=== PATIENT | female | born 1985 ===

== ENCOUNTER 2024-08-11 09:12 | Outpatient (AMB) | payer MEDICAID, SELFPAY ==
--- NOTE | 2024-08-11 09:13 | A.OFFVIS_ITS ---
Vital Signs 08/11/24 09:18 Height 5 ft 6 in Weight 213 lb BMI 34.4 BP 124/56 L Blood Pressure Location Lt brachial Position Sitting Pulse 91 Pulse Source Pulse Oximeter Pulse Oximetry (%) 97 Oxygen Delivery Method Room Air Intake Visit Reasons: Lumbar disc disease Intake Note: Pain today 08/01 Study Abroad Coordinator Required: Yes Study Abroad Coordinator Language: Turner Machine Services: Study Abroad Coordinator Present Study Abroad Coordinator Name: Beverly #[id number] Allergies oxycodone [From Percocet] Allergy (Unknown, Verified 08/11/24 09:18) Hives Medication List - Last Reconciled 08/11/24 by BENITEZ Villalobos lidocaine 5% 1 patch topical DAILY 30 days meloxicam 15 mg PO DAILY omeprazole 20 mg PO BID HPI HPI Lumbar disc disease: Details: Patient is a 39 years old Portuguese speaking female with recent traumatic arthritis of right ankle, chronic low back pain, lumbar DDD, obesity, chronic pelvic in female, presents today for initial evaluation of low back pain. Patient reports back pain has been chronic and recently exacerbated after she twisted her right ankle while wearing high heels at [employer] and subsequently injuring her right foot at work. She presents with RLE cast with exposed toes and is wearing Aircast boot. Patient reports she has Orthopedic follow up today with removal of cast and potential surgery discussion. Back pain is axial and discogenic without radiation into her lower extremities. She also has mild tenderness in the projection of bilateral sacroiliac joint areas, worse on the left. Denies previous spine surgery or injections. Pain affects her daily activities and functioning, mobility, sleep and social interactions. To this point she has not tried any dedicated conservative treatment in the forms of physical therapy, chiropractic, acupuncture or injections. She is interested to pursue PT and obtain initial lumbar spine imaging. Denies any fever or chills, abdominal or groin pain, weakness, bladder or bowel dysfunction or saddle anesthesia. Location: Lower back pain Duration: Chronic pain > 2 years Characteristics of symptom or complaint: Aching, stabbing, shooting, burning, throbbing Aggravating or associated factors: Prolonged sitting, bending, flexing forward, movements, ADLs Relieving factors: Tylenol, Ibuprofen, starting meloxicam, heat, rest Treatment: None PFSH Medical History (Updated 08/11/24 @ 09:27 by BENITEZ Villalobos) Chronic low back pain Traumatic arthritis of right ankle Chronic pelvic pain in female Lumbar degenerative disc disease Social History Alcohol intake: current Alcohol intake frequency: holidays/special occasions only Patient Tobacco Use Status: Current everyday Tobacco user Tobacco use type: Cigarette Cigarette Packs Per Day: 4 Review of Systems Const All systems reviewed & are unremarkable except as noted in HPI and below Physical Exam General: Appears afebrile. Alert and oriented. Mood and affect appropriate. Follows and participates in conversation appropriately. Respiratory effort is unlabored. No cough. Able to transition from sit to stand unassisted. Ambulates with left normal heel strike and toe off. Wearing Aircast boot on the right. General: Yes no CVA tenderness Back/Spine/Pelvis Other: Limited lumbar ROM due to pain. Significant pain with bending or flexing for garcia, mild pain with lumbar extension. Antalgic gait with limping. Demonstrates 5/5 left and 4/5 right strength of quadriceps bilaterally as well as flexion/dorsiflexion of bilateral feet against resistance. 2+ pedal pulses bilaterally. Straight leg rise with dorsiflexion negative bilaterally. +2 patellar and +1 on the left achilles reflexes, not checked on the right, RLE in cast. Facet loading test positive bilaterally. Karena sign, Brain?s and Stinchfield tests are positive bilaterally, left>right. No groin pain with I/E hip rotations. Valsalva maneuver negative. Back: no CVA tenderness Cervical Spine: cervical ROM normal, cervical muscular tenderness and No Cervical spine tenderness Thoracic/Lumbar Spine: thoracic and lumbar spine normal to inspection, No Thoracic/lumbar spine scar(s), Lasegue's sign negative, straight leg raise negative bilaterally, pain with thoraco-lumbar ROM, paraspinal muscle tenderness, thoraco-lumbar ROM limited, No thoracic spinal tenderness and lumbar spinal tenderness (L4-S1) Pelvis: no buttock tenderness Sacroiliac joints: bilaterally tender to palpation (mild) Sacrum: tenderness midline Results Reviewed Results Reviewed: No imaging reports are available for review. Patient denies prior spine imaging. Assessment & Plan Assessment & Plan (1) Lumbar degenerative disc disease: Code(s): M51.36 - Other intervertebral disc degeneration, lumbar region Category: Medical (2) Chronic low back pain: Code(s): M54.50 - Low back pain, unspecified; G89.29 - Other chronic pain Category: Medical (3) Discogenic low back pain: Code(s): M51.36 - Other intervertebral disc degeneration, lumbar region Category: Medical (4) Lumbosacral spondylosis: Code(s): M47.817 - Spondylosis without myelopathy or radiculopathy, lumbosacral region Category: Medical Plan Lumbar spine and SIJ imaging to assess degree of degenerative changes, any subluxation, listhesis, compression fractures or pars defects. Back pain is axial and easily reproduced and exacerbated with lumbar flexion indicating a discogenic source. Recommend formal physical therapy as initial steps to reduce pain and optimize mobility, improve strength and neuromuscular coordination. Script provided for [facility]. Will proceed with lumbar spine MRI if no improvement with PT and home exercise program. Continue Tylenol, heat therapy, activity modifications, NSAIDs, daily physical activity, weight optimization, adequate hydration and good posture. All questions and concerns have been answered and patient agreed with the plan. Follow up for xray results and sooner as needed. Orders: Orders XR lumbar spine 6V w bending Today M47.817 - Spondylosis without myelopathy or radiculopathy, lumbosacral region, M51.36 - Other intervertebral disc degeneration, lumbar region PT Evaluation and Treatment Today G89.29 - Other chronic pain, M47.817 - Spondylosis without myelopathy or radiculopathy, lumbosacral region, M51.36 - Other intervertebral disc degeneration, lumbar region, M54.50 - Low back pain, unspecified XR sacroiliac joint min 3V Today M47.817 - Spondylosis without myelopathy or radiculopathy, lumbosacral region Medications: New lidocaine 5% 1 patch topical DAILY 30 days 30 ea 0RF pain G89.29 - Other chronic pain, M47.817 - Spondylosis without myelopathy or radiculopathy, lumbosacral region, M51.36 - Other intervertebral disc degeneration, lumbar region, M54.50 - Low back pain, unspecified Coding Level of Care Code New Pt Level 4 (71341) Complex EM visit Add On G2211 Diagnoses Lumbar degenerative disc disease M51.36 Chronic low back pain M54.50; G89.29 Discogenic low back pain M51.36 Lumbosacral spondylosis M47.817
[2024-08-11 09:18] VITALS: BP 124/56; PULSE 91; O2SAT 97; BMI 34.4
== END 2024-08-11 09:34 | disposition home or self-care (01) ==
PROVIDERS: PCP Physician Assistant; Visit Provider Nurse Practitioner Family
DX: M51.36 Other intervertebral disc degeneration, lumbar region (principal); M54.50 Low back pain, unspecified; G89.29 Other chronic pain; M47.817 Spondylosis without myelopathy or radiculopathy, lumbosacral region
CPT/HCPCS: 99204

== ENCOUNTER → 2024-08-11 09:12 | Outpatient (BNVA) | payer MEDICAID, SELFPAY | PROVIDERS: PCP Physician Assistant; Visit Provider Nurse Practitioner Family | DX: M51.36 Other intervertebral disc degeneration, lumbar region (principal); M54.50 Low back pain, unspecified; M47.817 Spondylosis without myelopathy or radiculopathy, lumbosacral region; G89.29 Other chronic pain | CPT/HCPCS: 99212 ==

== ENCOUNTER 2024-08-15 09:37 | Outpatient (REF) | payer MEDICAID, SELFPAY ==
--- NOTE | ~2024-08-15 | XR_ITS ---
EXAMINATION: XR LUMBOSACRAL SPINE CLINICAL INFORMATION: Low back pain. COMPARISON: None available. TECHNIQUE: 6 views of the lumbar spine, inclusive of flexion and extension views, were obtained. FINDINGS: Submitted for interpretation on September 26, 2024. S-shaped curvature of the lower thoracic upper lumbar spine. No acute cortical disruption or gross malalignment. No lytic or blastic lesions. No gross malalignment during flexion and or extension. XR/XR lumbar spine 6V w bending IMPRESSION: No acute fracture or listhesis. No instability. Electronically signed by: Celestine Clifford MD 09/26/2024 03:35 PM EST
--- NOTE | ~2024-08-15 | XR_ITS ---
EXAMINATION: XR SACROILIAC JOINTS CLINICAL INFORMATION: Pain. COMPARISON: None available. TECHNIQUE: 3 views of the sacroiliac joints FINDINGS: No acute cortical disruption. No lytic or blastic lesions. No gross sclerosis. XR/XR sacroiliac joint min 3V IMPRESSION: Normal sacroiliac joints. Electronically signed by: Celestine Clifford MD 09/26/2024 03:42 PM EST
== END 2024-08-15 09:38 | disposition home or self-care (01) ==
LOC: HO.XRAY 09:37
PROVIDERS: PCP Physician Assistant; Visit Provider Nurse Practitioner Family
DX: M51.36 Other intervertebral disc degeneration, lumbar region (principal); M47.817 Spondylosis without myelopathy or radiculopathy, lumbosacral region
CPT/HCPCS: 72114; 72202

== ENCOUNTER → 2024-08-15 09:44 | Outpatient (BNV) | payer MEDICAID, SELFPAY | PROVIDERS: PCP Physician Assistant; Visit Provider Radiology Diagnostic Radiology | DX: M46.1 Sacroiliitis, not elsewhere classified (principal) | CPT/HCPCS: 72114; 72202 ==

== ENCOUNTER 2024-10-02 13:00 | Outpatient (RCR) | payer MEDICAID, SELFPAY ==
--- NOTE | 2024-09-14 17:19 | MHC.PT.EP ---
[facility] [place] Check Office [place] Office [place] Office [address] Andres Moore [address] [phone] F: [phone] F: [phone] F: [phone] F: [phone] Physical Therapy Plan of Care Date of Evaluation: 09/11/24 Date of Surgery: Diagnosis: spondylosis of lumbar. 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 Pt is deemed an appropriate candidate to receive skilled PT services to address their physical impairments in order to improve their functional ability. Frequency and Duration: The patient will be seen 2 x/ wk x 4 wks. Short Term Goals: Initiate home program. Improve baseline pain to < 6/10; initial: 8/10. Carton Waxing Machine Operator Goals: I with home program. Improve Davon by at least 9 points. Pt will be able to tolerate sitting > 1 hour. initial 30 min. Pt will be able to tolerate standing > 30 min, initial < 10 min. Treatment Plan: Modalities to reduce pain, spasms and effusion. Manual therapy to restore motion and function. Therapeutic exercise to improve strength and flexibility. Neuromuscular re-education for posture and balance. Therapeutic activities to return to functional activities of daily living. Electronically signed by: Carlos Pleitez PT. Please sign and return to therapist. Thank you for your referral.
--- NOTE | 2025-01-01 07:16 | MHC.PT.DC ---
[facility] [place] Office [place] Office [place] Office [address] Andres Moore [address] [phone] F: [phone] F: [phone] F: [phone] F: [phone] Physical Therapy Discharge Report Diagnosis: spondylosis of lumbar. Date of Surgery: Date of Evaluation: 09/11/24 Date of Discharge: 01/01/25 Treatments to Date: 6 Cancellations to Date: No Shows to Date: Discharge Status: Independent with HEP Patient Elected to Stop Recommend MD Follow-up Discharge Summary: Pennie is I with a gentle back basics program she did persist with LBP and was encouraged to f/u with her MD following her imaging studies. Electronically signed by: Carlos Pleitez PT. Please sign and return to therapist. Thank you for your referral.
== END 2025-01-01 07:16 | disposition home or self-care (01) ==
LOC: HO.PT 13:00
PROVIDERS: PCP Physician Assistant; Visit Provider Nurse Practitioner Family
DX: M47.817 Spondylosis without myelopathy or radiculopathy, lumbosacral region (principal); M54.50 Low back pain, unspecified; M51.369 Other intervertebral disc degeneration, lumbar region without mention of lumbar back pain or lower extremity pain
CPT/HCPCS: 97014; 97110; 97140; 97161

== ENCOUNTER 2025-02-06 10:38 | Outpatient (AMB) | payer MEDICAID, SELFPAY ==
--- NOTE | 2025-02-06 10:47 | MHC.OFFVIS ---
Vital Signs 02/06/25 10:51 Height 5 ft 6 in Weight 207 lb BMI 33.4 BP 127/60 Blood Pressure Location Lt brachial Position Sitting Pulse 65 Pulse Source Pulse Oximeter Pulse Oximetry (%) 98 Oxygen Delivery Method Room Air Intake Visit Reasons: Lumbar Disc Disease Intake Note: Pain today 05/31 Property Controller Required: Yes Property Controller Language: Parachutist/Combatant Diver Qualified Services: Property Controller Present Property Controller Name: Divya Information Interpreted: non-clinical & clinical Accompanied by: Spouse Allergies oxycodone [From Percocet] Allergy (Unknown, Verified 02/06/25 10:52) Hives HPI Comments Details: The patient is a 40-year-old female presenting with persistent back pain radiating into the right leg. Back pain has been progressively worsening for past 2 years. Reports stabbing pain is exacerbated by bending forward and backwards, significantly impacting her mobility and daily activities. There is associated tingling along the right leg down and below the knee with associated numbness and burning. The patient completed 6 sessions of physical therapy without relief of symptoms, and currently, she is in therapy for her ankle with potential discussion of right ankle surgery next month. Additionally, she exhibits limited mobility of the right ankle. Current pain management involves the use of lidocaine patches which provide mild symptom relief. She has ceased using meloxicam due to adverse effects, opting to use acetaminophen as needed. We will proceed with lumbar spine MRI as next steps. Patient denies pain on the left leg, abdominal or groin pain, weakness, bladder or bowel dysfunction or saddle anesthesia. - Onset: Chronic back pain for over 2 years. Right ankle pain. - Quality: Stabbing, aching, tingling, shooting, burning, throbbing, tiring, heavy - Location: Midline back with right leg radiation. Right ankle pain. - Radiation: From back to sides of the leg on the right - Exacerbating Factors: Flexion and extension of the back; standing and bending, walking - Relieving Factors: Lidocaine patches and heat therapy provide mild relief, Tylenol, tried NSAIDs -minimal relief - Impact: Limits range of motion; Tingling in the right leg; Limited right ankle mobility - Affect: Concerned about medication interactions; fear regarding medication usage - Analgesia: Current - Lidocaine patches used with mild relief, Acetaminophen as needed; Discontinued - Meloxicam - Adverse Effects: Not using meloxicam due to adverse effects - Activities of Daily Living: Limited by pain and restricted right ankle mobility - Aberrant Drug Related Behaviors: None reported; patient expresses cautious use of medications PRIOR: Patient is a 39 years old Salvadorean speaking female with recent traumatic arthritis of right ankle, chronic low back pain, lumbar DDD, obesity, chronic pelvic in female, presents today for initial evaluation of low back pain. Patient reports back pain has been chronic and recently exacerbated after she twisted her right ankle while wearing high heels at [employer] and subsequently injuring her right foot at work. She presents with RLE cast with exposed toes and is wearing Aircast boot. Patient reports she has Orthopedic follow up today with removal of cast and potential surgery discussion. Back pain is axial and discogenic without radiation into her lower extremities. She also has mild tenderness in the projection of bilateral sacroiliac joint areas, worse on the left. Denies previous spine surgery or injections. Pain affects her daily activities and functioning, mobility, sleep and social interactions. To this point she has not tried any dedicated conservative treatment in the forms of physical therapy, chiropractic, acupuncture or injections. She is interested to pursue PT and obtain initial lumbar spine imaging. Denies any fever or chills, abdominal or groin pain, weakness, bladder or bowel dysfunction or saddle anesthesia. Location: Lower back pain Duration: Chronic pain > 2 years Characteristics of symptom or complaint: Aching, stabbing, shooting, burning, throbbing Aggravating or associated factors: Prolonged sitting, bending, flexing forward, movements, ADLs Relieving factors: Tylenol, Ibuprofen, starting meloxicam, heat, rest Treatment: None [facility] Medical History (Updated 02/06/25 @ 11:22 by BENITEZ iVllalobos) Chronic low back pain Traumatic arthritis of right ankle Chronic pelvic pain in female Lumbar degenerative disc disease Social History (Updated 08/11/24 @ 09:20 by Stacia Busby) Alcohol intake: current Alcohol intake frequency: holidays/special occasions only Patient Tobacco Use Status: Current everyday Tobacco user Tobacco use type: Cigarette Cigarette Packs Per Day: 4 Review of Systems Const Details: - Musculoskeletal: Reports right leg tingling and limited right ankle movement; denies left leg pain - Neurological: Reports tingling sensation, denies bladder or bowel dysfunction or saddle anesthesia All systems reviewed & are unremarkable except as noted in HPI and below Physical Exam Vital Signs: Last Vital Signs Pulse 65 02/06/25 10:51 BP 127/60 02/06/25 10:51 Pulse Ox 98 02/06/25 10:51 Oxygen Delivery Method Room Air 02/06/25 10:51 BMI result Body Mass Index 33.4 General: Appears afebrile. Alert and oriented. Mood and affect appropriate. Follows and participates in conversation appropriately. Respiratory effort is unlabored. No cough. Able to transition from sit to stand unassisted. Ambulates with left normal heel strike and toe off. Wearing Aircast boot on the right. General: Yes no CVA tenderness Back/Spine/Pelvis Other: Limited lumbar ROM due to pain. Significant pain with bending or flexing forward, mild pain with lumbar extension. Antalgic gait with limping. Demonstrates 5/5 left and 4/5 right strength of quadriceps bilaterally as well as flexion/dorsiflexion of bilateral feet against resistance. 2+ pedal pulses bilaterally. Straight leg rise with dorsiflexion negative bilaterally. +2 patellar and +1 on the left achilles reflexes, not checked on the right, RLE in cast. Facet loading test positive bilaterally. Karena sign, Brain?s and Stinchfield tests are positive bilaterally, left>right. No groin pain with I/E hip rotations. Valsalva maneuver negative. Back: no CVA tenderness Cervical Spine: cervical ROM normal, cervical muscular tenderness and No Cervical spine tenderness Thoracic/Lumbar Spine: thoracic and lumbar spine normal to inspection, No Thoracic/lumbar spine scar(s), Lasegue's sign negative, straight leg raise negative bilaterally, pain with thoraco-lumbar ROM, paraspinal muscle tenderness, thoraco-lumbar ROM limited, No thoracic spinal tenderness and lumbar spinal tenderness (L4-S1) Pelvis: no buttock tenderness Sacroiliac joints: bilaterally tender to palpation (mild) Sacrum: tenderness midline Results Reviewed Results Reviewed: XR LUMBOSACRAL SPINE 08/15/24 CLINICAL INFORMATION: Low back pain. FINDINGS: Submitted for interpretation on September 26, 2024. S-shaped curvature of the lower thoracic upper lumbar spine. No acute cortical disruption or gross malalignment. No lytic or blastic lesions. No gross malalignment during flexion and or extension. IMPRESSION: No acute fracture or listhesis. No instability. XR SACROILIAC JOINTS 08/15/24 CLINICAL INFORMATION: Pain. FINDINGS: No acute cortical disruption. No lytic or blastic lesions. No gross sclerosis. IMPRESSION: Normal sacroiliac joints. Assessment & Plan Assessment & Plan (1) Lumbar degenerative disc disease: Code(s): M51.36 - Other intervertebral disc degeneration, lumbar region Category: Medical (2) Chronic low back pain: Code(s): M54.50 - Low back pain, unspecified; G89.29 - Other chronic pain Category: Medical (3) Discogenic low back pain: Code(s): M51.36 - Other intervertebral disc degeneration, lumbar region Category: Medical (4) Lumbosacral spondylosis: Code(s): M47.817 - Spondylosis without myelopathy or radiculopathy, lumbosacral region Category: Medical Plan Further evaluation of chronic back pain with right leg symptoms is necessary due to the ineffectiveness of previous physical therapy, NSAIDs, Tylenol, activity modifications, lidocaine patches and heat therapy. An MRI is being pursued to explore potential spinal pathologies, assess for neural integrity and compression. Follow up with Podiatry provider for persistent right ankle pain as planned. Patient reports potential right ankle surgery discussion in February. Patient will return to the clinic to discuss results of the MRI findings when it is done and consider interventional therapy as indicated. Continue Tylenol, heat therapy, activity modifications, NSAIDs, daily physical activity, weight optimization, adequate hydration and good posture. All questions and concerns have been answered and patient agreed with the plan. Follow up for xray results and sooner as needed. Patient was informed and verbally consented to the use of an ambient scribe for clinic note documentation during this visit. Orders: Orders MR lumbar spine wo con Today M47.817 - Spondylosis without myelopathy or radiculopathy, lumbosacral region, M51.36 - Other intervertebral disc degeneration, lumbar region, M54.16 - Radiculopathy, lumbar region Medications: Refilled lidocaine 5% 1 patch topical DAILY 30 days 30 ea 3RF pain G89.29 - Other chronic pain, M47.817 - Spondylosis without myelopathy or radiculopathy, lumbosacral region, M51.36 - Other intervertebral disc degeneration, lumbar region, M54.50 - Low back pain, unspecified Coding Level of Care Code Est Pt Level 4 (96074) Complex EM visit Add On G2211 Diagnoses Lumbar degenerative disc disease M51.36 Chronic low back pain M54.50; G89.29 Discogenic low back pain M51.36 Lumbosacral spondylosis M47.817
[2025-02-06 10:51] VITALS: BP 127/60; PULSE 65; O2SAT 98; BMI 33.4
--- OUTSIDE RECORDS SUMMARY | 2025-02-06 12:36 | XMS_ITS | Clinical Summary ---
Author Organization [facility] Address [address] [place] [address] Care Team Providers Care Can Line Operator Name Role Phone Francine Lambert PA-C Primary Care Provider + [phone] Source Comments PLEASE NOTE, if this patient is a minor, it may be UNLAWFUL to discuss sensitive information that is contained in these records (such as FAMILY PLANNING, MENTAL HEALTH or SUBSTANCE ABUSE) with the minor patient's parent or other person without the patient's specific authorization.[facility] Allergies Active Allergy Reactions Criticality Noted Date Comments Oxycodone-Acetaminophen Itching 05/01/2016 Medications diclofenac sodium (VOLTAREN) 1 % gelIndications: Lumbar disc disease Apply 4 gm QID 100 g 5 10/06/20 22 Active terconazole (TERAZOL 3) 0.8 % vaginal creamIndication s:Subacute vaginitis Place 1 Applicator vaginally nightly at bedtime 20 g 2 10/06/20 22 Active mupirocin (BACTROBAN) 2 % ointment Apply topically nightly at bedtime Csection scar 22 g 10/06/20 22 Active cyclobenzaprine (FLEXERIL) 10 mg tablet Take 1 Tablet by mouth nightly at bedtime 30 Tablet 1 10/06/20 22 Active amoxicillin-pot clavulanate (AUGMENTIN) 875-125 mg per tabletIndicatio ns:Right acute otitis media Take 1 Tablet by mouth 2 (two) times daily 10 Tablet 02/04/20 24 Active meloxicam (MOBIC) 15 mg tabletIndicatio ns:Traumatic arthritis of right ankle,Lumbar disc disease Take 1 Tablet by mouth once daily 90 Tablet 2 03/31/20 24 Active omeprazole (PRILOSEC) [address] capsuleIndicati ons:Dyspepsia Take 1 Capsule by mouth 2 (two) times daily 180 Capsule 2 04/26/20 24 Active nystatin (MYCOSTATIN) 100,000 unit/gram powderIndicatio ns:Intertrigo Apply topically 4 (four) times daily 30 g 6 04/26/20 24 Active propranoloL (INDERAL) 10 mg tabletIndicatio ns:Hyperthyroid ism Take 1 Tablet by mouth 2 (two) times daily 180 Tablet 1 01/05/20 25 Active zinc oxide (TRIPLE PASTE) ointmentIndicat ions:Intertrigo Apply topically as needed for dry skin 60 g 2 01/05/20 25 Active nicotine (NICODERM, STEP 1) 21 mg/24 hr patchIndication s:Tobacco use Place 1 Patch onto the skin once daily (every 24 hours) 28 Patch 1 01/05/20 25 Active loratadine (CLARITIN) 10 mg tabletIndicatio ns:Atopic dermatitis, unspecified type TAKE 1 TABLET BY MOUTH NIGHTLY AT BEDTIME 90 Tablet 4 01/30/20 25 Active loratadine (CLARITIN) 10 mg tabletIndicatio ns:Atopic dermatitis, unspecified type Take 1 Tablet by mouth nightly at bedtime 90 Tablet 4 01/07/20 24 025 Discontinued Hospital, Clinic, or Other Facility Administered Medication Ordered Dose Route Frequency Start Date End Date Status Kary 20.1 mcg/24 hrs (6 yrs) 52 mg IUD (levonorgestreL)Indicatio ns:Encounter for insertion of intrauterine contraceptive device 1 Each utrn EVERY 4 YEARS 06/24/2021 A ctive Active Problems Problem Noted Date Diagnosed Date Hyperthyroidism 202401/31/2025 Traumatic arthritis of right ankle 03/31/2024 Chronic pelvic pain in female 03/31/2024 Lumbar disc disease 09/04/2020 Non morbid obesity 08/29/2020 Dyspepsia 03/23/2018 Functional constipation 01/26/2018 H. pylori infection 07/201608/04/2016 Tobacco use 09/23/2015 Carpal tunnel syndrome of right wrist 04/05/2015 Hirsutism 05/17/2014 Encounters Date Type Department Care Team Description 01/31/2025 2:00 PM EDT Office Visit [address] [address] Francine Lambert PA-C Hyperthyroidism 2024 (Primary Dx); Tobacco use; Traumatic arthritis of right ankle 01/05/2025 1:20 PM EST Office Visit [address] [address] Francine Lambert PA-C Hyperthyroidism (Primary Dx); Intertrigo; Tobacco use from Last 3 Months Immunizations Name Administration Dates Next Due INFLUENZA, SEASONAL, INJECTA BLE, PRESERVATIVE FREE 12/07/2012 MMR (MMR II/Priorix) 06/28/2019 PNEUMOCOCCAL CONJUGATE PCV 2 0 (Prevnar) 10/06/2022 PPD 05/03/2018, 7,04/29/2016,2014 TDAP 08/10/2017 Social History Tobacco Use Types Packs/Day Years Used Date Smoking Tobacco: Every Day Cigarettes 0.3 22.1 Started: 2003 Passive Smoke Exposure: Never Smokeless Tobacco: Never Tobacco Cessation:Ready to Q uit: No; Counseling Given: Yes Alcohol Use Standard Drinks/Week Comments No 0 (1 standard drink = 0.6 oz pur e alcohol) Social Connections Answer Date Recorded Connectedness 1 01/31/2025 Financial Resource Strain Answer Date R ecorded Financial Resource Strain 1 2024 Stress Answer Date Recorded Stress 1 01/31/2025 Physical Activity Answer Date Recorded Physical Activity 0 07/15/2019 Food Insecurity Answer Date Recorded Food 1 01/31/2025 Transportation Needs Answer Date Record ed Transportation 1 01/31/2025 Housing Stability Answer Date Recorded Housing 1 01/31/2025 Safety and Environment Answer Date Young rded Safety 1 03/31/2024 Utilities Answer Date Recorded Utilities 1 01/31/2025 Employment Answer Date Recorded Employment 0 07/15/2019 Comments No Sex and Gender Information Value Date Recorded Sex Assigned at Female 09/20/2017 11:42 AM PDT Legal Sex Female 11:36 AM PDT Gender Identity Female 09/20/2017 11:42 AM PDT Sexual Orientation Straight 09/20/2017 11 :42 AM PDT Last Filed Vital Signs Vital Sign Reading Time Taken Comments Blood Pressure 124/60 01/31/2025 1:41 PM EDT Pulse 82 01/31/2025 1:41 PM EDT Temperature 36.9 ??C (98.4 ??F) 01/31/2025 1:41 PM ED T Respiratory Rate 16 01/31/2025 1:41 PM EDT Oxygen Saturation 98% 01/31/2025 1:41 PM EDT Inhaled Oxygen Concentration - - Weight 92.5 kg (204 lb) 01/31/2025 1:41 PM EDT Height 157.5 cm (5' 2 ) 01/31/2025 1:41 PM EDT Body Mass Index 37.31 01/31/2025 1:41 PM EDT Plan of Treatment Health Maintenance Due Date Last Done Comments HPV Screening 1983 Pap Smear 09/04/2023 09/04/2020, 08/22, 09/04/2020, Additional history exists Annual Preventive Care Visit 03/31/202508/2024, 10/06/2022, 09/04/2020, Additional history exists Relationship Safety Screening/Counseling 03/31/2025 03/31/2024, 01/07/2024, 12/09/2022, Additional history exists Cervical Cancer Screening 09/04/2025 Pap + HPV 09/04/2025 09/04/2020, 09/04/2020 Hypertension Screening (#1) 01/31/2026 Tobacco Cessation Counseling (#1) 01/31/2026 015, 10/03/2015 Breast Cancer Screening (Mammogram) 04/04/2026 04/04/2024 Diabetes Screening 01/28/2027 01/29/2024, 0 01/29/2024, 10/06/2022, Additional history exists Lipid Screening 01/28/2027 01/29/2024, 09/22, 08/29/2020, Additional history exists LARC-Liletta IUD 06/24/2027 06/24/2021 Imm-Influenza Discontinued 12/07/2012 HIV Screening Completed 06/19/2014 Hepatitis C Screening Completed 06/19/2014 Imm-DTaP/Tdap/Td Discontinued 08/10/2017 Imm-Pneumococcal Discontinued 10/06/2022 Alcohol and Drug Screen Completed 02/01/20 25, 03/31/2024, 01/07/2024, Additional history exists Depression Annual Screen Completed 025, 06/14/2015, 08/06/2014 (Declined) Cervical Ablation/Cold-Knife Conization Discontinued Cervical Cryotherapy Discontinued Colposcopy Discontinued Endometrial Biopsy Discontinued Excision/Leep Discontinued HPV Genotyping Discontinued [id number] Discontinued Imm-Hepatitis B Discontinued Vaginal Pap Discontinued Vulvoscopy Discontinued Procedures Procedure Name Priority Date/Time Associated Diagnosis Comments CARD SCANNED DOCUMENT 01/19/2025 3:00 AM EST REFERRAL SCANNED DOCUMENT 01/09/2025 3:00 AM EST REFERRAL SCANNED DOCUMENT 12/28/2024 3:00 AM EST REFERRAL TO ORTHOPEDICS Routine 12/21/2024 3:00 AM EST Traumatic arthritis of right ankle MAMMOGRAM BI-RADS, ABSTRACTED Routine 04/04/2024 1:55 PM EDT HEMOGLOBIN GLYCOSYLATED A1C Routine 01/29/2024 8:37 AM EST New onset headache Dizziness Atopic dermatitis, unspecified type LIPID PANEL Routine 01/29/2024 8:37 AM EST New onset headache Dizziness Atopic dermatitis, unspecified type PAP, LIQUID BASED Routine 09/04/2020 10: 30 AM EDT Encounter for gynecological examination without abnormal finding Cervical cancer screening PAP SMEAR W/HPV, ABSTRACTED Routine 09/04/2020 ANTIBODY HIV-1&HIV-2 SINGLE RESULT Routine 06/19/2014 12:50 PM EDT Routine general medical examination at a health care facility Venous insufficiency Dyspepsia Intertrigo Dyshidrotic eczema External hemorrhoid Constipation - functional Pulmonary nodule HEPATITIS A,B,C PANEL Routine 06/19/2014 12:50 PM EDT Routine general medical examination at a health care facility Venous insufficiency Dyspepsia Intertrigo Dyshidrotic eczema External hemorrhoid Constipation - functional Pulmonary nodule from Last 3 Months or Most Recently Relevant to Health Maintenance Results * CARD SCANNED DOCUMENT (01/19/2025 3:00 AM EST) 01/19/2025 3:00 AM EST us Francine Dotsonkin PA-C SCAN ECGS Final Result * REFERRAL SCANNED DOCUMENT (01/09/2025 3:00 AM EST) Only the most recent of2 resultswithin the time period is included. 01/09/2025 3:00 AM EST us Francine Lukin PA-C SCAN REFERRAL Final Result * REFERRAL TO ORTHOPEDICS (12/21/2024 3:00 AM EST) 12/21/2024 3:00 AM EST us Francine Lukin PA-C REFERRAL Final Result * MAMMOGRAM BI-RADS, ABSTRACTED (04/04/2024 1:55 PM EDT) BI-RADS ASSESSMENT 1 - Negative: means that there is no significant or noticeable abnormality to report. BI-RADS FOLLOW-UP 1 - Routine Screening Anatomical Region Laterality Modality Other Impressions 04/04/2024 1:55 PM EDT ? Result type: MM Digital Mammo Screening Result date: April 04, 2024 14:56 EDT Result status: Auth (Verified) Result title: MM Digital Mammo Screening Performed by: Tanja Wilson MD on April 04, 2024 16:38 EDT Verified by: Tanja Wilson MD on April 04, 2024 16:38 EDT Encounter info: [id number], [facility] [place], One Time OP, 04/04/2024 - 04/04/2024 * Final Report * Reason For Exam Z12.31 SCREENING;Pain RESULT: MM Digital Mammo Screening PROCEDURE: MM Digital Mammo Screening INDICATION: Screening for breast cancer. No known palpable abnormalities. COMPARISON: None. Baseline. TECHNIQUE: Full-field digital CC and MLO 3D tomosynthesis images of both breasts were acquired. Computer-aided detection (CAD) was utilized in the interpretation of this study. DENSITY: There are scattered areas of fibroglandular density. ?? FINDINGS: No suspicious masses, suspicious microcalcifications, or areas of architectural distortion are seen in either breast to suggest malignancy. IMPRESSION: No mammographic evidence of malignancy. RECOMMENDATION: Routine mammographic screening BI-RADS: 1 (Negative) Lay letter mailed to patient WSN: [id number] Ordering Physician: Alyssa Claros Signature Line Dictated By: ?Tanja Wilson MD Dictated Date/Time: ?04/04/24 4:38 pm Reviewed By: ?Tanja Wilson MD Signed By: ? Tanja Wilson MD Signed Date/Time: ? 04/04/24 4:38 pm Transcribed By: ? CSB Sheet Metal Installer Date/Time: ? 04/04/24 4:20 pm Birads: MM Digital Mammo Screening This document has an image Provider [facility] MAMMO Final Result * HEMOGLOBIN GLYCOSYLATED A1C (01/29/2024 8:37 AM EST) HEMOGLOBIN A1C 5.6 <5.7 % of total Hgb ITS Compliance Comment: For the purpose of screening for the presence of diabetes: <5.7% ? Consistent with the absence of diabetes 5.7-6.4% ?Consistent with increased risk for diabetes ?(prediabetes) > or =6.5% ??Consistent with diabetes This assay result is consistent with a decreased risk of diabetes. Currently, no consensus exists regarding use of hemoglobin A1c for diagnosis of diabetes in children. According to [place] Diabetes Association (ADA) guidelines, hemoglobin A1c <7.0% represents optimal control in non- diabetic patients. Different metrics may apply to specific patient populations. Standards of Medical Care in Diabetes(ADA). ?? Blood Blood / Unknown 01/29/2024 8 :37 AM EST 01/29/2024 8:40 AM EST Narrative [facility] - 01/31/2024 6:10 PM EDT FASTING:YES Francine Lambert PA-C LAB - BLOOD DRAW Edited Resu lt - Final [facility] [address] [address], [facility] [address] [address] * (ABNORMAL) LIPID PANEL (01/29/2024 8:37 AM EST) [facility] Signature CHOLESTEROL, TOTAL 187 <200 mg/dL [facility] HDL CHOLESTEROL 35(L) > OR = 50 mg/dL [facility] TRIGLYCERIDES 114 <150 mg/dL [facility] LDL-CHOLESTEROL 130(H) 99 mg/dL (calc) [facility] Comment: Reference range: <100 Desirable range <100 mg/dL for primary prevention; ?? <70 mg/dL for patients with CHD or diabetic patients with > or = 2 CHD risk factors. LDL-C is now calculated using the Bassam-Paz calculation, which is a validated novel method providing better accuracy than the Friedewald equation in the estimation of LDL-C. Bassam SS et al. RADHA. 2013;310(19): 8827-5211 (http://education.[employer]faq/FQT820) CHOL/HDLC RATIO 5.3(H) <5.0 (calc) [facility] NON-HDL CHOLESTEROL 152(H) <130 mg/dL (calc) [facility] Comment: For patients with diabetes plus 1 major ASCVD risk factor, treating to a non-HDL-C goal of <100 mg/dL (LDL-C of <70 mg/dL) is considered a therapeutic option. Blood Blood / Unknown 01/29/2024 8 :37 AM EST 01/29/2024 8:40 AM EST Narrative [facility] - 01/31/2024 6:10 PM EDT FASTING:YES Francine Lambert PA-C LAB - BLOOD DRAW Final Resul t Performing Organization Address [facility] Co de Phone Number [facility] [address] [address], [facility] [address] [place] [address] * PAP, LIQUID BASED (09/04/2020 10:30 AM EDT) PAP normal NORMAL - ABNORMAL [facility] Cervix Cervix uteri structure / Unknown 09/04/2020 10:30 AM EDT Impressions [facility] - 09/04/2020 10:30 AM EDT Negative for squamous intraepithelial lesion and malignancy High risk HPV : Negative Results of Aptima Combo 2 Assay: Chlamydia: Negative N. Gonorrhoeae: Negative Francine Lambert PA-C LAB - NO BLOOD DRAW Final Re sult Performing Organization Address [facility] Co de Phone Number [facility] [address] [place] [address], * PAP SMEAR W/HPV (09/04/2020) Provider [facility] LAB - NO BLOOD DRAW Final Result Performing Organization Address [facility] Co de Phone Number [facility] [address] [place] [address], * (ABNORMAL) HEPATITIS A,B,C PANEL (06/19/2014 12:50 PM EDT) HEPATITIS B SURFACE ANTIGEN NEGATIVE NEGATIVE [facility] C VIRUS ANTIBODY NEGATIVE NEGATIVE [facility]PAT[facility] A ANTIBODY TOTAL NEGATIVE NEGATIVE [facility] HEPATITIS B CORE ANTIBODY NEGATIVE NEGATIVE [facility] HEPATITIS B SURFACE ANTIBODY POSITIVE(A) NEGATIVE [facility] Blood specimen (specimen) Blood / Unknown 06/19/2014 12:50 PM EDT 06/19/2014 1:07 PM EDT Narrative [facility] - 06/19/2014 4:51 PM EDT [employer] [address] [place] [address] PT ID [id number] ORD# [id number] Francine Lambert PA-C LAB - BLOOD DRAW Edited Resu lt - Final Performing Organization Address City/[facility]/ZIP Co de Phone Number [facility] [address] [place] [address], [place] [phone] * HIV-1 & HIV-2 ANTIBODIES (06/19/2014 12:50 PM EDT) [facility] HIV 1 AND 2 ANTIBODY SCREEN NEGATIVE NEGATIVE [facility] Blood specimen (specimen) Blood / Unknown 06/19/2014 12:50 PM EDT 06/19/2014 1:07 PM EDT Narrative [facility] - 06/19/2014 4:50 PM EDT [facility] [employer] [address] [place] [address] [place] [id number] ORD# [id number] Francine Lambert PA-C LAB - BLOOD DRAW Final Resul t Performing Organization Address [facility]/ZIP Co de Phone Number [facility] [address] [place] [address], [place] [phone] from Last 3 Months or Most Recently Relevant to Health Maintenance Insurance [place] [facility] SAF[employer] NET DENT[employer] [address] [employer] Care Teams Can Line Operator Relationship Specialty Start Date End Date Francine Lambert PA-C [address] [place] [phone] PCP - General Internal Medicine 05/18/14
--- OUTSIDE RECORDS SUMMARY | 2025-02-06 12:36 | XMS_ITS | Clinical Summary ---
Author Organization [facility] Address [address] [place] [id number] Care Team Providers Care Heating And Air Conditioning Mechanic Name Role Phone Eros Whitten MD Primary Care Provider [phone] Social History Tobacco Use Types Packs/Day Years Used Date Smoking Tobacco: Never Assessed Comments Unknown Sex and Gender Information Value Date Recorded Sex Assigned at Not on file Legal Sex Female 10:18 AM EST Gender Identity Not on file Sexual Orientation Not on file Last Filed Vital Signs Vital Sign Reading Time Taken Comments Blood Pressure 118/63 04/25/2024 1:01 PM EDT Pulse 73 04/25/2024 1:01 PM EDT Temperature - - Respiratory Rate - - Oxygen Saturation - - Inhaled Oxygen Concentration - - Weight 94.9 kg (209 lb 3.2 oz) 04/25/2024 1:01 P M EDT Height 167.6 cm (5' 6 ) 04/25/2024 1:01 PM EDT Body Mass Index 33.77 04/25/2024 1:01 PM EDT Plan of Treatment Health Maintenance Due Date Last Done Comments Breast Cancer Screening 1983 COVID-19 Vaccine (#1) 1988 DTaP,Tdap,and Td Vaccines (1 - Tdap) 2002 Hepatitis B Vaccines (1 of 3 - 19+ 3-dose series) 2002 Pneumococcal Vaccine: Pediat rics (0 to 5 Years) and At-Risk Patients (6 to 64 Years) (1 of 2 - PCV) 2002 Cervical Cancer Screening: P ap Smear 2004 Depression Screening 10/20/2022 HIV Screening 10/20/2022 Hepatitis C Screening 10/20/2022 Social Influencers of Health Screening 10/20/2022 Influenza Vaccine (#1) 2024 HIB Vaccines Aged Out No longer eligi ble based on patient's age to complete this topic HPV Vaccines Aged Out No longer eligi ble based on patient's age to complete this topic Hepatitis A Vaccines Aged Out No long er eligible based on patient's age to complete this topic IPV Vaccines Aged Out No longer eligi ble based on patient's age to complete this topic MMR Vaccines Aged Out No longer eligi ble based on patient's age to complete this topic Meningococcal ACWY Vaccine Aged Out N o longer eligible based on patient's age to complete this topic Meningococcal B Vacine Aged Out No lo nger eligible based on patient's age to complete this topic RSV Immunization Patients Un cosme 20 months Aged Out No longer eligible b ased on patient's age to complete this topic Varicella Vaccines Aged Out No longer eligible based on patient's age to complete this topic Care Teams Heating And Air Conditioning Mechanic Relationship Specialty Start Date End Date Eros Whitten MD [address] [place] [phone] PCP - General Internal Medicine 08/15/20
--- OUTSIDE RECORDS SUMMARY | 2025-02-06 12:36 | XMS_ITS | Encounter Summary ---
Author Organization [facility] Address [address] [place] [address] Care Team Providers Care Tennis Player Name Role Phone Francine Lambert PA-C Primary Care Provider + [phone] Reason for Visit * Reason Comments Tobacco Abuse Encounter Details Date Type Department Care Team (Latest Contact Info) Description 01/31/2025 2:00 PM EDT Office Visit [facility] Main [address] [phone] Francine Lambert PA-C [address] [place] [phone] 2024 (Primary Dx); Tobacco use; Traumatic arthritis of right ankle Social History Tobacco Use Types Packs/Day Years [...] Orientation Straight 09/20/2017 11 :42 AM PDT documented as of this encounter Last Filed Vital Signs Vital Sign Reading [...] Mass Index 37.31 01/31/2025 1:41 PM EDT documented in this encounter Progress Notes * Francine Lambert PA-C - 01/31/2025 2:50 PM EDT S: Subjective Chief Complaint: Follow-up for thyroid and tobacco use History of Present Illness: Pennie Oliver is a 40 year old female who presents for thyroid disease Started methimazole and propranolol prescribed by jase and feels better Did not start nicotine patches Too many smokers around her Has surgery for right ankle with ortho coming up 01/31/2025 1:41 PM Little interest or pleasure in doing things Not at all Feeling down, depressed or hopeless [include irritable if under 18] Not at all Trouble falling or staying asleep, or sleeping too much Not at all Feeling tired or having little energy Not at all Poor appetite or overeating Not at all Feeling bad about yourself - or that you are a failure or have let yourself or your family down Notat all Trouble concentrating on things like school work, reading or watching TV? Not at all Moving or speaking so slowly that other people could have noticed? Or the opposite - being so fidgety or restless that you have been moving around a lot more than usual Not at all Thoughts you would be better off or of hurting yourself in some way Not at all If you checked off any problems, how difficult have these problems made it for you to do your work,take care of things at home, or get along with other people? Not difficult at all PHQ-9 Total Score (Auto Calculated) 0 Depression Severity: None-minimal O: Objective Vital Signs: Visit Vitals BP 124/60 (BP Site: Right Arm, BP Position: Sitting, BP Cuff Size: Large Adult) Pulse 82 Temp 98.4 ??F (36.9 ??C) (Oral) Ht 5' 2 (1.575 m) Wt 204 lb (92.5 kg) LMP 01/25/2025 (Exact Date) SpO2 98% BMI 37.31 kg/m?? Vitals: 01/31/25 1341 Height: 5' 2 (1.575 m) Vitals: 01/31/25 1341 Weight: 204 lb (92.5 kg) General: Well-nourished, well-developed male in no acute distress. Cardiovascular: Regular rate and rhythm, no murmurs, gallops, or rubs. No peripheral edema. Respiratory: Clear to auscultation bilaterally. Abdomen: Soft, non-tender, non-distended. Normal bowel sounds. Extremities: No cyanosis, clubbing, or edema. Neurological: Alert and oriented x3, cranial nerves II-XII intact. Integumentary: Skin warm and dry, no rashes or lesions. Foot Exam: Inspection: No deformities, ulcers, or calluses. Pulses: Dorsalis pedis and posterior tibial pulses 2+ bilaterally. Sensation: Intact to monofilament testing. Capillary refill: <2 seconds. A: Assessment ,E05.90 Hyperthyroidism 2024 (primary encounter diagnosis)--cont endo follow up and management Z72.0 Tobacco use Ready to quit: No Counseling given: Yes M12.571 Traumatic arthritis of right ankle--cont ortho follow up and management Lifestyle measures:BMI follow up plan: The patient was counseled regarding nutrition and physical activity. PLAN: Continue specialty follow up and management documented in this encounter Miscellaneous Notes * Patient Instructions - Francine Lambert PA-C - 01/31/2025 1:54 PM EDT If you are not able to keep your appointment please call 24-48 hours before your appointment to cancel or reschedule. documented in this encounter Plan of Treatment Not on file documented as of this encounter Procedures Procedure Name Priority Date/Time Associated Diagnosis Comments MAMMOGRAM BI-RADS, ABSTRACTED Routine 04/04/2024 1:55 PM EDT documented in this encounter Results * MAMMOGRAM BI-RADS, ABSTRACTED (04/04/2024 1:55 PM [...] April 04, 2024 16:38 EDT Encounter info: [id number], [facility], One Time OP, 04/04/2024 - 04/04/2024 * [...] (Negative) Lay letter mailed to patient WSN: [id number] Ordering Physician: Alyssa Claros Signature Line Dictated By: ?Tanja Wilson MD Dictated Date/Time: ?04/04/24 4:38 pm Reviewed By: ?Tanja Wilson MD Signed By: ? Tanja Wilson MD Signed Date/Time: ? 04/04/24 4:38 pm Transcribed By: ? CSB Director Pharmacology Date/Time: ? 04/04/24 4:20 pm Birads: MM Digital Mammo Screening This document has an image us Provider Louise GALELGOS MAMMO Final Result documented in this encounter Visit Diagnoses Diagnosis Hyperthyroidism 2024- Primary Thyrotoxicosis without mention of goiter or other cause, without mention of thyrotoxic crisis or storm Tobacco use Tobacco use disorder Traumatic arthritis of right ankle documented in this encounter Additional Health Concerns Assessment Noted Time PHQ-9 Depression Total Score: 0 02/01/20 25 1:41 PM PDT documented as of this encounter Care Teams Tennis Player Relationship Specialty Start Date End Date Francine Lambert PA-C [facility] [place] [phone] PCP - General Internal Medicine 05/18/14 documented as of this encounter
== END 2025-02-06 11:12 | disposition home or self-care (01) ==
LOC: HO.PMC 10:39
PROVIDERS: PCP Physician Assistant; Visit Provider Nurse Practitioner Family
DX: M51.369 Other intervertebral disc degeneration, lumbar region without mention of lumbar back pain or lower extremity pain (principal); M54.50 Low back pain, unspecified; G89.29 Other chronic pain; M47.817 Spondylosis without myelopathy or radiculopathy, lumbosacral region
CPT/HCPCS: 99214

== ENCOUNTER → 2025-02-06 10:38 | Outpatient (BNVA) | payer MEDICAID, SELFPAY | PROVIDERS: PCP Physician Assistant; Visit Provider Nurse Practitioner Family | DX: M51.360 Other intervertebral disc degeneration, lumbar region with discogenic back pain only (principal); G89.29 Other chronic pain | CPT/HCPCS: 99212 ==

== ENCOUNTER 2025-02-17 18:28 | Outpatient (REF) | payer MEDICAID, SELFPAY ==
--- NOTE | ~2025-02-17 | MR_ITS ---
CLINICAL HISTORY: M51.36 - Other intervertebral disc degeneration, lumbar region Lumbar MRI Without Contrast : Comparison: Plain films 08/15/2024 Findings: Alignment is good No Spondylolysis Bone marrow cellularity is normal. A 12 mm L1 vertebral body hemangioma is present. No fractures. Paravertebral soft tissues: Normal. A 10 mm right renal cortical cyst is present. The conus medullaris is located at T12-L1. Distal spinal cord morphology and signal is normal. T12-L1: No disc protrusion. No foraminal stenosis L1-L2: No disc protrusion. No foraminal stenosis L2-L3: No disc protrusion. No foraminal stenosis L3-L4: No disc protrusion. No foraminal stenosis L4-L5: No disc protrusion. No foraminal stenosis. L5-S1: There is focal left intraforaminal 5.2 mm disc protrusion with radial tear with moderate foraminal stenosis. Impression: Focal left intraforaminal disc protrusion with moderate foraminal stenosis at L5-S1 This document has been electronically signed by: Blayne Gonzales MD on 02/17/2025 19:16:07
== END 2025-02-17 18:29 | disposition home or self-care (01) ==
LOC: HO.MRI 18:28
PROVIDERS: Visit Provider Nurse Practitioner Family
DX: M47.817 Spondylosis without myelopathy or radiculopathy, lumbosacral region (principal); M54.16 Radiculopathy, lumbar region; M51.369 Other intervertebral disc degeneration, lumbar region without mention of lumbar back pain or lower extremity pain
CPT/HCPCS: 72148

== ENCOUNTER → 2025-02-17 18:28 | Outpatient (BNV) | payer MEDICAID, SELFPAY | PROVIDERS: Visit Provider Radiology Diagnostic Radiology | DX: M51.369 Other intervertebral disc degeneration, lumbar region without mention of lumbar back pain or lower extremity pain (principal) | CPT/HCPCS: 72148 ==

== ENCOUNTER 2025-02-22 12:43 | Outpatient (AMB) | payer MEDICAID, SELFPAY ==
[2025-02-22 12:50] VITALS: BP 120/72; PULSE 69; O2SAT 97; BMI 33.6
--- NOTE | 2025-02-22 12:50 | MHC.OFFVIS ---
Vital Signs 02/22/25 12:50 Height 5 ft 6 in Weight 208 lb BMI 33.6 BP 120/72 Blood Pressure Location Lt brachial Position Sitting Pulse 69 Pulse Source Pulse Oximeter Pulse Oximetry (%) 97 Oxygen Delivery Method Room Air Intake Visit Reasons: MRI results Allergies oxycodone [From Percocet] Allergy (Unknown, Verified 02/22/25 12:50) Hives Medication List - Last Reconciled 02/22/25 by BENITEZ Villalobos lidocaine 5% 1 patch topical DAILY 30 days methimazole 10 mg PO Q8H nicotine 1 patch topical DAILY omeprazole 20 mg PO BID propranolol 20 mg PO TID zinc oxide 20% topical HPI Comments Details: Patient presents today for follow up to discuss recent lumbar spine MRI results. Patient continues to endorse chronic back pain and right ankle pain. She reports a persistent back pain history lasting over two years, primarily affecting the right side and occasionally both legs, impacting her right hip and groin. Her symptoms are exacerbated by specific activities, notably contributing to her discomfort. Additionally, the patient is preparing for right ankle surgery this month. A recent MRI revealed a left L5-S1 disc herniation with moderate spinal stenosis, despite the patient experiencing negligible left leg symptoms. Furthermore, a cyst on her right kidney was detected, prompting recommendations for follow-up with a renal ultrasound. The patient reports partial back pain relief with lidocaine patches. - Onset: Chronic back pain over two years. - Quality: Radiating pain predominantly on the right side, sometimes affecting both legs. - Location: Right side, affecting right hip and groin; occasional bilateral leg pain. - Radiation: Pain radiates to the right leg, sometimes both but is described as minimal on the left. - Exacerbating Factors: Specific activities worsen the symptoms. - Relieving Factors: Partial relief with lidocaine patches, heat, Tylenol, NSAID. - Impact on Function: Slight interference with daily activities, specific impact not detailed. PRIOR: The patient is a 40-year-old female presenting with persistent back pain radiating into the right leg. Back pain has been progressively worsening for past 2 years. Reports stabbing pain is exacerbated by bending forward and backwards, significantly impacting her mobility and daily activities. There is associated tingling along the right leg down and below the knee with associated numbness and burning. The patient completed 6 sessions of physical therapy without relief of symptoms, and currently, she is in therapy for her ankle with potential discussion of right ankle surgery next month. Additionally, she exhibits limited mobility of the right ankle. Current pain management involves the use of lidocaine patches which provide mild symptom relief. She has ceased using meloxicam due to adverse effects, opting to use acetaminophen as needed. We will proceed with lumbar spine MRI as next steps. Patient denies pain on the left leg, abdominal or groin pain, weakness, bladder or bowel dysfunction or saddle anesthesia. - Onset: Chronic back pain for over 2 years. Right ankle pain. - Quality: Stabbing, aching, tingling, shooting, burning, throbbing, tiring, heavy - Location: Midline back with right leg radiation. Right ankle pain. - Radiation: From back to sides of the leg on the right - Exacerbating Factors: Flexion and extension of the back; standing and bending, walking - Relieving Factors: Lidocaine patches and heat therapy provide mild relief, Tylenol, tried NSAIDs -minimal relief - Impact: Limits range of motion; Tingling in the right leg; Limited right ankle mobility - Affect: Concerned about medication interactions; fear regarding medication usage - Analgesia: Current - Lidocaine patches used with mild relief, Acetaminophen as needed; Discontinued - Meloxicam - Adverse Effects: Not using meloxicam due to adverse effects - Activities of Daily Living: Limited by pain and restricted right ankle mobility - Aberrant Drug Related Behaviors: None reported; patient expresses cautious use of medications PRIOR: Patient is a 39 years old Turkmen speaking female with recent traumatic arthritis of right ankle, chronic low back pain, lumbar DDD, obesity, chronic pelvic in female, presents today for initial evaluation of low back pain. Patient reports back pain has been chronic and recently exacerbated after she twisted her right ankle while wearing high heels at [employer] and subsequently injuring her right foot at work. She presents with RLE cast with exposed toes and is wearing Aircast boot. Patient reports she has Orthopedic follow up today with removal of cast and potential surgery discussion. Back pain is axial and discogenic without radiation into her lower extremities. She also has mild tenderness in the projection of bilateral sacroiliac joint areas, worse on the left. Denies previous spine surgery or injections. Pain affects her daily activities and functioning, mobility, sleep and social interactions. To this point she has not tried any dedicated conservative treatment in the forms of physical therapy, chiropractic, acupuncture or injections. She is interested to pursue PT and obtain initial lumbar spine imaging. Denies any fever or chills, abdominal or groin pain, weakness, bladder or bowel dysfunction or saddle anesthesia. Location: Lower back pain Duration: Chronic pain > 2 years Characteristics of symptom or complaint: Aching, stabbing, shooting, burning, throbbing Aggravating or associated factors: Prolonged sitting, bending, flexing forward, movements, ADLs Relieving factors: Tylenol, Ibuprofen, starting meloxicam, heat, rest Treatment: None [facility] Medical History Chronic low back pain Traumatic arthritis of right ankle Chronic pelvic pain in female Lumbar degenerative disc disease Social History Alcohol intake: current Alcohol intake frequency: holidays/special occasions only Patient Tobacco Use Status: Current everyday Tobacco user Tobacco use type: Cigarette Cigarette Packs Per Day: 4 Review of Systems Const All systems reviewed & are unremarkable except as noted in HPI and below Physical Exam General: Appears afebrile. Alert and oriented. Mood and affect appropriate. Follows and participates in conversation appropriately. Respiratory effort is unlabored. No cough. Able to transition from sit to stand unassisted. Ambulates with left normal heel strike and toe off. Right ankle pain due to arthritis. General: Yes no CVA tenderness Back/Spine/Pelvis Other: Limited lumbar ROM due to pain. Significant pain with bending or flexing forward, mild pain with lumbar extension. Antalgic gait with limping. Demonstrates 5/5 strength of quadriceps bilaterally as well as flexion/dorsiflexion of bilateral feet against resistance. 2+ pedal pulses bilaterally. Straight leg rise with dorsiflexion negative bilaterally. +2 patellar and +1 on the left achilles reflexes, not checked on the right, right ankle pain. Facet loading test positive bilaterally. Karena sign, Brain?s and Stinchfield tests are positive bilaterally, left>right. Minimal groin pain with right I/E hip rotations. Valsalva maneuver negative. Back: no CVA tenderness Cervical Spine: cervical ROM normal, cervical muscular tenderness and No Cervical spine tenderness Thoracic/Lumbar Spine: thoracic and lumbar spine normal to inspection, No Thoracic/lumbar spine scar(s), Lasegue's sign negative, straight leg raise negative bilaterally, pain with thoraco-lumbar ROM, paraspinal muscle tenderness, thoraco-lumbar ROM limited, No thoracic spinal tenderness and lumbar spinal tenderness (L4-S1) Pelvis: no buttock tenderness Sacroiliac joints: bilaterally tender to palpation (mild) Sacrum: tenderness midline Results Reviewed Results Reviewed: XR LUMBOSACRAL SPINE 08/15/24 CLINICAL INFORMATION: Low back pain. FINDINGS: Submitted for interpretation on September 26, 2024. S-shaped curvature of the lower thoracic upper lumbar spine. No acute cortical disruption or gross malalignment. No lytic or blastic lesions. No gross malalignment during flexion and or extension. IMPRESSION: No acute fracture or listhesis. No instability. XR SACROILIAC JOINTS 08/15/24 CLINICAL INFORMATION: Pain. FINDINGS: No acute cortical disruption. No lytic or blastic lesions. No gross sclerosis. IMPRESSION: Normal sacroiliac joints. MR lumbar spine wo con 02/17/25 Lumbar MRI Without Contrast : Comparison: Plain films 08/15/2024 Findings: Alignment is good No Spondylolysis Bone marrow cellularity is normal. A 12 mm L1 vertebral body hemangioma is present. No fractures. Paravertebral soft tissues: Normal. A 10 mm right renal cortical cyst is present. The conus medullaris is located at T12-L1. Distal spinal cord morphology and signal is normal. T12-L1: No disc protrusion. No foraminal stenosis L1-L2: No disc protrusion. No foraminal stenosis L2-L3: No disc protrusion. No foraminal stenosis L3-L4: No disc protrusion. No foraminal stenosis L4-L5: No disc protrusion. No foraminal stenosis. L5-S1: There is focal left intraforaminal 5.2 mm disc protrusion with radial tear with moderate foraminal stenosis. Impression: Focal left intraforaminal disc protrusion with moderate foraminal stenosis at L5-S1. Assessment & Plan Assessment & Plan (1) Lumbar degenerative disc disease: Code(s): M51.36 - Other intervertebral disc degeneration, lumbar region Category: Medical (2) Chronic low back pain: Code(s): M54.50 - Low back pain, unspecified; G89.29 - Other chronic pain Category: Medical (3) Lumbosacral spondylosis: Code(s): M47.817 - Spondylosis without myelopathy or radiculopathy, lumbosacral region Category: Medical (4) Lumbar radiculopathy: Code(s): M54.16 - Radiculopathy, lumbar region Category: Medical (5) Right hip pain: Code(s): M25.551 - Pain in right hip Category: Medical (6) Renal cyst, right: Code(s): N28.1 - Cyst of kidney, acquired Category: Medical Plan Patient will proceed with planned right ankle surgery to potentially alleviate compensatory symptoms attributed to altered biomechanics. She will be monitoring any back pain alterations and assessing leg pain after ankle surgery. Lumbar spine MRI noted for left L5-S1 disc herniation currently requires no intervention due to minimal symptoms on the left but may be reconsidered if bilateral leg pain escalates post-operatively. The patient should undergo an ultrasound of the right kidney for further evaluation of 10 mm cyst noted on lumbar MRI and follow up with her primary care provider for further management. For ongoing right hip pain with groin pain, we will obtain right hip with pelvic view xray. All questions and concerns have been answered and patient agreed with the plan. Follow up for xray results and sooner as needed. Patient was informed and verbally consented to the use of an ambient scribe for clinic note documentation during this visit. Orders: Orders XR hip RT w PEL1V Today G89.29 - Other chronic pain, M25.551 - Pain in right hip, M47.817 - Spondylosis without myelopathy or radiculopathy, lumbosacral region, M51.36 - Other intervertebral disc degeneration, lumbar region, M54.16 - Radiculopathy, lumbar region, M54.50 - Low back pain, unspecified US renal RT Today N28.1 - Cyst of kidney, acquired Patient Instructions: - Proceed with scheduled right ankle surgery as planned. - Continue using pain management lidocaine patches, Tylenol, NSAID as directed. - Follow up with primary care provider for right renal cyst. Renal US ordered today. - Complete right hip with pelvic views xray. Results will be called to patient. - Return for reassessment of back pain and potential injection therapy post-ankle surgery if significant symptoms persist. Coding Level of Care Code Est Pt Level 4 (37695) Complex EM visit Add On G2211 Diagnoses Lumbar degenerative disc disease M51.36 Chronic low back pain M54.50; G89.29 Lumbosacral spondylosis M47.817 Lumbar radiculopathy M54.16 Right hip pain M25.551 Renal cyst, right N28.1
--- OUTSIDE RECORDS SUMMARY | 2025-02-22 13:45 | XMS_ITS | Clinical Summary ---
Author Organization [facility] Address [id number] [place] [phone] Care Team Providers Care Adapted Physical Education Aide Name Role Phone Eros Whitten MD Primary Care Provider [phone] Social History Tobacco Use Types Packs/Day Years [...] age to complete this topic Care Teams Adapted Physical Education Aide Relationship Specialty Start Date End Date Erso Whitten MD [address] [place] [phone] PCP - General Internal Medicine 08/15/20
--- OUTSIDE RECORDS SUMMARY | 2025-02-22 13:46 | XMS_ITS | Clinical Summary ---
Author Organization [facility] Address [address] [place] [address] Care Team Providers Care Hot Die Press Feeder Name Role Phone Francine Lambert PA-C Primary Care Provider + [phone] Source Comments PLEASE NOTE, if this patient [...] Description 01/31/2025 2:00 PM EDT Office Visit [address] [address] Francine Lambert PA-C Hyperthyroidism 2024 (Primary Dx); Tobacco use; Traumatic arthritis of right ankle 01/05/2025 1:20 PM EST Office Visit [address] [address] Francine Lambert PA-C Hyperthyroidism (Primary Dx); Intertrigo; Tobacco use from Last 3 Months Immunizations Immunization Administration Dates Next Due INFLUENZA, SEASONAL, INJECTA [...] Health Maintenance Due Date Last Done Comments Anxiety Screening 1983 HPV Screening 1983 Pap Smear 09/04/2023 09/04/2020, 08/22, 09/04/2020, Additional history exists Annual Preventive Care Visit 03/31/202508/2024, 10/06/2022, 09/04/2020, Additional history exists Relationship Safety Screening/Counseling 03/31/2025 03/31/2024, 01/07/2024, 12/09/2022, Additional history exists Cervical Cancer Screening 09/04/2025 Pap + HPV 09/04/2025 09/04/2020, 09/04/2020 Hypertension Screening (#1) 01/31/2026 Tobacco Cessation Counseling (#1) 01/31/202611/14/ 015, 10/03/2015 Breast Cancer Screening (Mammogram) 04/04/2026 [...] Biopsy Discontinued Excision/Leep Discontinued HPV Genotyping Discontinued [id number]-[id number] Discontinued Imm-Hepatitis B Discontinued Vaginal Pap Discontinued [...] 3:00 AM EST) 01/19/2025 3:00 AM EST Francine Texertkin PA-C SCAN ECGS Final Result * REFERRAL SCANNED DOCUMENT (01/09/2025 3:00 AM EST) Only the most recent of2 resultswithin the time period is included. 01/09/2025 3:0 0 AM EST Francine Lukin PA-C SCAN REFERRAL Final Result [...] April 04, 2024 16:38 EDT Encounter info: [id number], [facility], [facility] Time OP, 04/04/2024 - 04/04/2024 * [...] (Negative) Lay letter mailed to patient WSN: [id number] Ordering Physician: Alyssa Claros Signature Line Dictated By: ?Tanja Wilson MD Dictated Date/Time: ?04/04/24 4:38 pm Reviewed By: ?Tanja Wilson MD Signed By: ? Tanja Wilson MD Signed Date/Time: ? 04/04/24 4:38 pm Transcribed By: ? [employer] Supplies Salesperson Date/Time: ? 04/04/24 4:20 pm Birads: MM Digital Mammo Screening This document has an image Provider Louise [facility] M[facility]MO Final Result * HEMOGLOBIN GLYCOSYLATED A1C (01/29/2024 8:37 AM EST) HEMOGLOBIN A1C 5.6 <5.7 % of total Hgb [employer] Comment: For the purpose of screening for the presence of diabetes: <5.7% ? Consistent with the absence of diabetes 5.7-6.4% ?Consistent with increased risk for diabetes ?(prediabetes) > or =6.5% ??Consistent with diabetes This assay result is consistent with a decreased risk of diabetes. Currently, no consensus exists regarding use of hemoglobin A1c for diagnosis of diabetes in children. According to [place] Diabetes Association (ADA) guidelines, hemoglobin A1c <7.0% represents optimal control in non- diabetic patients. Different metrics may apply to specific patient populations. Standards of Medical Care in Diabetes(ADA). ?? Blood Blood / Unknown 01/29/2024 8 :37 AM EST 01/29/2024 8:40 AM EST Narrative [employer] [facility] - 01/31/2024 6:10 PM EDT FASTING:YES us Francine Lambert PA-C LAB - BLOOD DRAW Edited Resu lt - Final [facility] [address] [address], [facility] [address] [address] * (ABNORMAL) LIPID PANEL (01/29/2024 8:37 AM EST) CHOLESTEROL, TOTAL 187 <200 mg/dL [facility] HDL CHOLESTEROL 35(L) > OR = 50 mg/dL [facility] TRIGLYCERIDES 114 <150 mg/dL [facility] LDL-CHOLESTEROL 130(H) 99 mg/dL (calc) [facility] Comment: Reference range: <100 Desirable range <100 mg/dL for primary prevention; ?? <70 mg/dL for patients with CHD or diabetic patients with > or = 2 CHD risk factors. LDL-C is now calculated using the Bassam-Paz calculation, which is a validated novel method providing better accuracy than the Friedewald equation in the estimation of LDL-C. Bassam BRAGG et al. RADHA. 2013;310(19): 0350-7913 (http://education.[employer]/faq/OPU326) CHOL/HDLC RATIO 5.3(H) <5.0 (calc) [employer] [facility] NON-HDL CHOLESTEROL 152(H) <130 mg/dL (calc) [employer] Comment: For patients with diabetes plus 1 major ASCVD risk factor, treating to a non-HDL-C goal of <100 mg/dL (LDL-C of <70 mg/dL) is considered a therapeutic option. Blood Blood / Unknown 01/29/2024 8 :37 AM EST 01/29/2024 8:40 AM EST Narrative [facility] - 01/31/2024 6:10 PM EDT FASTING:YES us Francine Lambert PA-C LAB - BLOOD DRAW Final Resul t Performing Organization Address [facility] Co de Phone Number [facility] [address] [address], [facility] [address] [place] [address] * PAP, LIQUID BASED (09/04/2020 10:30 AM EDT) PAP normal NORMAL - ABNORMAL [facility] C[employer] Cervix uteri structure / Unknown 09/04/2020 10:30 AM EDT Impressions [facility] - 09/04/2020 10:30 AM EDT Negative for squamous intraepithelial lesion and malignancy High risk HPV : Negative Results of Aptima Combo 2 Assay: Chlamydia: Negative N. Gonorrhoeae: Negative Francine Lambert PA-C LAB - NO BLOOD DRAW Final Re sult Performing Organization Address [facility] Co de Phone Number [facility] [address] [place] [address], * PAP SMEAR W/HPV (09/04/2020) Provider [facility] LAB - NO BLOOD DRAW Final Result Performing Organization Address [facility] Co de Phone Number [facility] [address] [place] [address], * (ABNORMAL) HEPATITIS A,B,C PANEL (06/19/2014 12:50 PM EDT) HEPATITIS B SURFACE ANTIGEN NEGATIVE NEGATIVE [facility] C VIRUS ANTIBODY NEGATIVE NEGATIVE [facility] HEPAT[facility]IS A ANTIBODY TOTAL NEGATIVE NEGATIVE [facility] HEPATITIS B CORE ANTIBODY NEGATIVE NEGATIVE [facility] HEPATITIS B SURFACE ANTIBODY POSITIVE(A) NEGATIVE [facility] Blood specimen (specimen) Blood / Unknown 06/19/2014 12:50 PM EDT 06/19/2014 1:07 PM EDT Narrative [facility] - 06/19/2014 4:51 PM EDT [facility] [place] [address] PT [place] [id number] ORD# [id number] Francine Lambert PA-C LAB - BLOOD DRAW Edited Resu lt - Final Performing Organization Address [facility]/ZIP Co de Phone Number [facility] [address] [place] [address], [place] [phone] * HIV-1 & HIV-2 ANTIBODIES (06/19/2014 12:50 PM EDT) [facility] HIV 1 AND 2 ANTIBODY SCREEN NEGATIVE NEGATIVE [facility] Blood specimen (specimen) Blood / Unknown 06/19/2014 12:50 PM EDT 06/19/2014 1:07 PM EDT [facility] - 06/19/2014 4:50 PM EDT [address] [place] [address] [place] [id number] ORD# [id number] Francine Lambert PA-C LAB - BLOOD DRAW Final Resul t Performing Organization Address [facility]/ZIP Co de Phone Number [facility] [address] [place] [address], [place] [phone] from Last 3 Months or Most Recently Relevant to Health Maintenance Insurance [place] MEDICA[place] DENT[place] [facility] SAF[employer] NET DENTAL [address] [employer] Care Teams Hot Die Press Feeder Relationship Specialty Start Date End Date Francine Lambert PA-C [address] [place] [address] PCP - General Internal Medicine 05/18/14
== END 2025-02-22 13:23 | disposition home or self-care (01) ==
LOC: HO.PMC 12:43
PROVIDERS: PCP Physician Assistant; Visit Provider Nurse Practitioner Family
DX: M51.369 Other intervertebral disc degeneration, lumbar region without mention of lumbar back pain or lower extremity pain (principal); M54.50 Low back pain, unspecified; G89.29 Other chronic pain; M47.817 Spondylosis without myelopathy or radiculopathy, lumbosacral region; M54.16 Radiculopathy, lumbar region; M25.551 Pain in right hip; N28.1 Cyst of kidney, acquired
CPT/HCPCS: 99214

== ENCOUNTER → 2025-02-22 12:43 | Outpatient (BNVA) | payer MEDICAID, SELFPAY | PROVIDERS: Visit Provider Nurse Practitioner Family | DX: M51.369 Other intervertebral disc degeneration, lumbar region without mention of lumbar back pain or lower extremity pain (principal); G89.29 Other chronic pain; M47.817 Spondylosis without myelopathy or radiculopathy, lumbosacral region; M54.16 Radiculopathy, lumbar region; M25.551 Pain in right hip; N28.1 Cyst of kidney, acquired | CPT/HCPCS: 99212 ==

== ENCOUNTER 2025-03-30 11:07 | Outpatient (REF) | payer MEDICAID, SELFPAY ==
--- NOTE | ~2025-03-30 | US_ITS ---
CLINICAL HISTORY: N28.1 - Cyst of kidney, acquired --- Additional Notes or Special Instructions: Plea se follow up on a 10 mm right renal cortical cyst noted on recent US right kidney Comparison: None Findings: Right kidney 11.1 cm length. No significant focal abnormality. 0.8 cm lower pole cyst. No hydronephrosis. Left kidney not imaged. Impression: No significant abnormalities. This document has been electronically signed by: Galdino Ching MD on 04/02/2025 19:43:01
--- NOTE | ~2025-03-30 | XR_ITS ---
CLINICAL HISTORY: M25.551 - Pain in right hip Exam: AP pelvis with AP and frog-leg lateral views of the right hip. Comparison: None. Findings: Bony alignment of the hip joints is anatomic. No fracture. Minor degenerative change of the right hip joint with osteophyte formation along the lateral femoral head/neck junction. Left hip joint is well maintained. No erosions. Sacroiliac joints and pubic symphysis are unremarkable. Impression: Minor right hip DJD. This document has been electronically signed by: Sony Johnson MD on 04/01/2025 07:18:31
--- OUTSIDE RECORDS SUMMARY | 2025-03-30 11:37 | XMS_ITS | Clinical Summary ---
Author Organization [facility] ity Address [address] [place] [phone] Care Team Providers Care Soft Metals Engraver Hand Name Role Phone Eros Whitten MD Primary Care Provider [phone] Social History Tobacco Use Types Packs/Day Years [...] Influencers of Health Screening 10/20/2022 Influenza Vaccine (Season Ended) 2025 HIB Vaccines Aged Out No longer eligi [...] age to complete this topic Meningococcal B Vaccine Aged Out No l onger eligible based on patient's age to complete this topic RSV Immunization Patients Un cosme 20 months Aged Out No longer eligible b ased on patient's age to complete this topic Varicella Vaccines Aged Out No longer eligible based on patient's age to complete this topic Care Teams Soft Metals Engraver Hand Relationship Specialty Start Date End Date Eros Whitten MD [address] [place] [address] PCP - General Internal Medicine 08/15/20
== END 2025-03-30 11:08 | disposition home or self-care (01) ==
LOC: HO.US 11:07
PROVIDERS: PCP Physician Assistant; Visit Provider Nurse Practitioner Family
DX: N28.1 Cyst of kidney, acquired (principal); M51.360 Other intervertebral disc degeneration, lumbar region with discogenic back pain only; M54.16 Radiculopathy, lumbar region; M47.817 Spondylosis without myelopathy or radiculopathy, lumbosacral region; G89.29 Other chronic pain; M25.551 Pain in right hip
CPT/HCPCS: 73502; 76775

== ENCOUNTER → 2025-03-30 11:10 | Outpatient (BNV) | payer MEDICAID, SELFPAY | PROVIDERS: PCP Physician Assistant; Visit Provider Radiology Diagnostic Radiology | DX: N28.1 Cyst of kidney, acquired (principal) | CPT/HCPCS: 73502; 76775 ==

== ENCOUNTER 2025-06-07 13:59 | Outpatient (AMB) | payer MEDICAID, SELFPAY ==
--- NOTE | 2025-06-07 14:06 | A.OFFVIS_ITS ---
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 The patient underwent right ankle surgery approximately one month ago and is experiencing postoperative pain. She is wearing immobilizing boot and no other assisting devices. Her next follow up with Orthopedic surgeon, Dr. Pearce at [facility] is scheduled for June. She has been taking oxycodone for ankle pain, which causes mild hives. She has been advised to take oxycodone with Benadryl to mitigate the allergic reaction and takes it only at night. Prior to the ankle surgery, an MRI revealed a left L5-S1 disc herniation. The patient reports that the lidocaine patches are helping manage her back pain, and she does not have significant back pain today. Denies any recent cough, cold, infection, fever or any other significant changes in medical history since last office visit. PRIOR 02/22/25: Patient presents today for follow up to discuss recent lumbar spine MRI results. Patient continues to endorse chronic back pain and right ankle pain. She reports a persistent back pain history lasting over two years, primarily affecting the right side and occasionally both legs, impacting her right hip and groin. Her symptoms are exacerbated by specific activities, notably contributing to her discomfort. Additionally, the patient is preparing for right ankle surgery this month. A recent MRI revealed a left L5-S1 disc herniation with moderate spinal stenosis, despite the patient experiencing negligible left leg symptoms. Furthermore, a cyst on her right kidney was detected, prompting recommendations for follow-up with a renal ultrasound. The patient reports partial back pain relief with lidocaine patches. - Onset: Chronic back pain over two years. - Quality: Radiating pain predominantly on the right side, sometimes affecting both legs. - Location: Right side, affecting right hip and groin; occasional bilateral leg pain. - Radiation: Pain radiates to the right leg, sometimes both but is described as minimal on the left. - Exacerbating Factors: Specific activities worsen the symptoms. - Relieving Factors: Partial relief with lidocaine patches, heat, Tylenol, NSAID. - Impact on Function: Slight interference with daily activities, specific impact not detailed. PRIOR: The patient is a 40-year-old female presenting with persistent back pain radiating into the right leg. Back pain has been progressively worsening for past 2 years. Reports stabbing pain is exacerbated by bending forward and backwards, significantly impacting her mobility and daily activities. There is associated tingling along the right leg down and below the knee with associated numbness and burning. The patient completed 6 sessions of physical therapy without relief of symptoms, and currently, she is in therapy for her ankle with potential discussion of right ankle surgery next month. Additionally, she exhibits limited mobility of the right ankle. Current pain management involves the use of lidocaine patches which provide mild symptom relief. She has ceased using meloxicam due to adverse effects, opting to use acetaminophen as needed. We will proceed with lumbar spine MRI as next steps. Patient denies pain on the left leg, abdominal or groin pain, weakness, bladder or bowel dysfunction or saddle anesthesia. - Onset: Chronic back pain for over 2 years. Right ankle pain. - Quality: Stabbing, aching, tingling, shooting, burning, throbbing, tiring, heavy - Location: Midline back with right leg radiation. Right ankle pain. - Radiation: From back to sides of the leg on the right - Exacerbating Factors: Flexion and extension of the back; standing and bending, walking - Relieving Factors: Lidocaine patches and heat therapy provide mild relief, Tylenol, tried NSAIDs -minimal relief - Impact: Limits range of motion; Tingling in the right leg; Limited right ankle mobility - Affect: Concerned about medication interactions; fear regarding medication usage - Analgesia: Current - Lidocaine patches used with mild relief, Acetaminophen as needed; Discontinued - Meloxicam - Adverse Effects: Not using meloxicam due to adverse effects - Activities of Daily Living: Limited by pain and restricted right ankle mobility - Aberrant Drug Related Behaviors: None reported; patient expresses cautious use of medications PRIOR: Patient is a 39 years old Bruneian speaking female with recent traumatic arthritis of right ankle, chronic low back pain, lumbar DDD, obesity, chronic pelvic in female, presents today for initial evaluation of low back pain. Patient reports back pain has been chronic and recently exacerbated after she twisted her right ankle while wearing high heels at [employer] and subsequently injuring her right foot at work. She presents with RLE cast with exposed toes and is wearing Aircast boot. Patient reports she has Orthopedic follow up today with removal of cast and potential surgery discussion. Back pain is axial and discogenic without radiation into her lower extremities. She also has mild tenderness in the projection of bilateral sacroiliac joint areas, worse on the left. Denies previous spine surgery or injections. Pain affects her daily activities and functioning, mobility, sleep and social interactions. To this point she has not tried any dedicated conservative treatment in the forms of ph ysical therapy, chiropractic, acupuncture or injections. She is interested to pursue PT and obtain initial lumbar spine imaging. Denies any fever or chills, abdominal or groin pain, weakness, bladder or bowel dysfunction or saddle anesthesia. Location: Lower back pain Duration: Chronic pain > 2 years Characteristics of symptom or complaint: Aching, stabbing, shooting, burning, throbbing Aggravating or associated factors: Prolonged sitting, bending, flexing forward, movements, ADLs Relieving factors: Tylenol, Ibuprofen, starting meloxicam, heat, rest Treatment: None [facility] Medical History (Updated 06/10/25 @ 18:05 by BENITEZ Villalobos) Chronic low back pain Traumatic arthritis of right ankle Chronic pelvic pain in female Lumbar degenerative disc disease Social History Alcohol intake: current Alcohol intake frequency: holidays/special occasions only Patient Tobacco Use Status: Current everyday Tobacco user Tobacco use type: Cigarette Cigarette Packs Per Day: 4 Review of Systems Const Details: - Musculoskeletal: Reports postoperative pain in the right ankle, worse in the lateral aspect - Neurological: Denies significant back pain today All systems reviewed & are unremarkable except as noted in HPI and below Physical Exam Vital Signs: Last Vital Signs Pulse 61 06/07/25 14:08 BP 109/60 06/07/25 14:08 Pulse Ox 100 06/07/25 14:08 Oxygen Delivery Method Room Air 06/07/25 14:08 General: Appears afebrile. Alert and oriented. Mood and affect appropriate. Follows and participates in conversation appropriately. Respiratory effort is unlabored. No cough. Able to transition from sit to stand unassisted. Ambulates with left normal heel strike and toe off. Right ankle post-op pain, in immobilized boot. Cardio Peripheral pulses: Peripheral pulses 2+ throughout Back/Spine/Pelvis Cervical Spine: cervical ROM normal and No Cervical spine tenderness Thoracic/Lumbar Spine: thoracic and lumbar spine normal to inspection, Lasegue's sign negative, straight leg raise negative bilaterally, pain with thoraco-lumbar ROM, thoraco-lumbar ROM limited, No thoracic spinal tenderness and No lumbar spinal tenderness Extrem General: Yes capillary refill normal, Yes no clubbing, cyanosis or edema and Yes no calf tenderness Right lower extremity: ankle (Well healing incisions x4, open to air. Moderate TTP along lateral aspect) Details: normal to inspection, tenderness Location: of the lateral malleolus and anteromedially and abnormal ROM Details: pain with active ROM; no swelling and no ecchymosis Results Reviewed Results Reviewed: XR LUMBOSACRAL SPINE 08/15/24 CLINICAL INFORMATION: Low back pain. FINDINGS: Submitted for interpretation on September 26, 2024. S-shaped curvature of the lower thoracic upper lumbar spine. No acute cortical disruption or gross malalignment. No lytic or blastic lesions. No gross malalignment during flexion and or extension. IMPRESSION: No acute fracture or listhesis. No instability. XR SACROILIAC JOINTS 08/15/24 CLINICAL INFORMATION: Pain. FINDINGS: No acute cortical disruption. No lytic or blastic lesions. No gross sclerosis. IMPRESSION: Normal sacroiliac joints. MR lumbar spine wo con 02/17/25 Lumbar MRI Without Contrast : Comparison: Plain films 08/15/2024 Findings: Alignment is good No Spondylolysis Bone marrow cellularity is normal. A 12 mm L1 vertebral body hemangioma is present. No fractures. Paravertebral soft tissues: Normal. A 10 mm right renal cortical cyst is present. The conus medullaris is located at T12-L1. Distal spinal cord morphology and signal is normal. T12-L1: No disc protrusion. No foraminal stenosis L1-L2: No disc protrusion. No foraminal stenosis L2-L3: No disc protrusion. No foraminal stenosis L3-L4: No disc protrusion. No foraminal stenosis L4-L5: No disc protrusion. No foraminal stenosis. L5-S1: There is focal left intraforaminal 5.2 mm disc protrusion with radial tear with moderate foraminal stenosis. Impression: Focal left intraforaminal disc protrusion with moderate foraminal stenosis at L5-S1. Assessment & Plan Assessment & Plan (1) Right ankle pain: Code(s): M25.571 - Pain in right ankle and joints of right foot Category: Medical (2) Traumatic arthritis of right ankle: Code(s): M12.571 - Traumatic arthropathy, right ankle and foot Category: Medical (3) History of ankle surgery: Code(s): Z98.890 - Other specified postprocedural states Category: Surgical (4) Chronic low back pain: Code(s): M54.50 - Low back pain, unspecified; G89.29 - Other chronic pain Category: Medical Plan The patient is advised to follow up with her Orthopedic Surgeon for the management of postoperative acute ankle pain and physical therapy status post recent right ankle surgery. Tentatively plan for right sciatic nerve Sprint PNS trial with local and fluoroscopy for right ankle pain. Expectations, risks and benefits were reviewed. Patient is aware she will be contacted to schedule this procedure. Informational pamphlet provided to patient. Script provided for lidocaine patch for mild low back pain, per patient's request. All questions and concerns have been answered and patient agreed with the plan. Follow up after Sprint placement and sooner as needed. Patient was informed and verbally consented to the use of an ambient scribe for clinic note documentation during this visit. Medications: Refilled lidocaine 5% 1 patch topical DAILY 30 ea 6RF pain 30 days G89.29 - Other chronic pain, M47.817 - Spondylosis without myelopathy or radiculopathy, lumbosacral region, M51.36 - Other intervertebral disc degeneration, lumbar region, M54.50 - Low back pain, unspecified Coding Level of Care Code Est Pt Level 4 (01358) Complex EM visit Add On G2211 Diagnoses Right ankle pain M25.571 Traumatic arthritis of right ankle M12.571 History of ankle surgery Z98.890 Chronic low back pain M54.50; G89.29
[2025-06-07 14:08] VITALS: BP 109/60; PULSE 61; O2SAT 100; BMI 33.4
--- OUTSIDE RECORDS SUMMARY | 2025-06-07 14:45 | XMS_ITS | Clinical Summary ---
Author Organization [facility] ity Address [address] [place] [phone] Care Team Providers Care Senior Stereo Compiler Team Lead Name Role Phone Eros Whitten MD Primary Care Provider [phone] Social History Tobacco Use Types Packs/Day Years [...] Last Done Comments Breast Cancer Screening 1983 DTaP,Tdap,and Td Vaccines (1 - Tdap) 2002 Hepatitis B Vaccines (1 of 3 - 19+ 3-dose series) 2002 Cervical Cancer Screening: P ap Smear 2004 Depression Screening 10/20/2022 HIV Screening 10/20/2022 Hepatitis C Screening 10/20/2022 Social Influencers of Health Screening 10/20/2022 COVID-19 Vaccine (1 - 2023-2 5 season) 2024 Influenza Vaccine (#1) 2025 HIB Vaccines Aged Out No longer [...] on patient's age to complete this topic Pneumococcal Vaccine: Pediat rics (0 to 5 Years) and At-Risk Patients (6 to 49 Years) Aged Out No longer eligible b ased on patient's age to complete this topic RSV Immunization Patients Un cosme 20 months Aged Out No longer eligible b ased on patient's age to complete this topic Varicella Vaccines Aged Out No longer eligible based on patient's age to complete this topic Care Teams Senior Stereo Compiler Team Lead Relationship Specialty Start Date End Date Eros Whitten MD [facility] [place] [phone] PCP - General Internal Medicine 08/15/20
--- OUTSIDE RECORDS SUMMARY | 2025-06-07 14:45 | XMS_ITS | Clinical Summary ---
Author Organization [facility] Address [address] [place] [address] Care Team Providers Care Chief Of Vital Statistics Name Role Phone Francine Lambert PA-C Primary Care Provider + [phone] Source Comments PLEASE NOTE, if this patient is a minor, it may be UNLAWFUL to discuss sensitive information that is contained in these records (such as FAMILY PLANNING, MENTAL HEALTH or SUBSTANCE ABUSE) with the minor patient's parent or other person without the patient's specific authorization.[facility] Allergies Active Allergy Reactions Criticality Noted Date Comments Oxycodone-Acetaminophen Itching 05/01/2016 Medications diclofenac sodium (VOLTAREN) 1 % gelIndications:L umbar disc disease Apply 4 gm QID 100 g 5 2 Active terconazole (TERAZOL 3) 0.8 % vaginal creamIndications :Subacute vaginitis Place 1 Applicator vaginally nightly at bedtime 20 g 2 2 Active mupirocin (BACTROBAN) 2 % ointment Apply topically nightly at bedtime Csection scar 22 g 2 Active cyclobenzaprine (FLEXERIL) 10 mg tablet Take 1 Tablet by mouth nightly at bedtime 30 Tablet 1 2 Active amoxicillin-pot clavulanate (AUGMENTIN) 875-125 mg per tabletIndication s:Right acute otitis media Take 1 Tablet by mouth 2 (two) times daily 10 Tablet 4 Active meloxicam (MOBIC) 15 mg tabletIndication s:Traumatic arthritis of right ankle,Lumbar disc disease Take 1 Tablet by mouth once daily 90 Tablet 2 05/10/202 4 Active nystatin (MYCOSTATIN) 100,000 unit/gram powderIndication s:Intertrigo Apply topically 4 (four) times daily 30 g 6 4 Active propranoloL (INDERAL) 10 mg tabletIndication s:Hyperthyroidis m Take 1 Tablet by mouth 2 (two) times daily 180 Tablet 1 5 Active zinc oxide (TRIPLE PASTE) ointmentIndicati ons:Intertrigo Apply topically as needed for dry skin 60 g 2 5 Active loratadine (CLARITIN) 10 mg tabletIndication s:Atopic dermatitis, unspecified type TAKE 1 TABLET BY MOUTH NIGHTLY AT BEDTIME 90 Tablet 4 5 Active omeprazole (PRILOSEC) [address] capsuleIndicatio ns:Dyspepsia Take 1 Capsule by mouth 2 (two) times daily. 180 Capsule 2 5 Active nicotine (NICODERM, STEP 1) 21 mg/24 hr patchIndications :Tobacco use Place 1 Patch onto the skin once daily (every 24 hours). 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 Hirsutism 05/17/2014 Immunizations Immunization Administration Dates Next Due INFLUENZA, SEASONAL, INJECTA BLE, PRESERVATIVE FREE 12/07/2012 MMR (MMR II/Priorix) 06/28/2019 PNEUMOCOCCAL CONJUGATE PCV 2 0 (Prevnar 20) 10/06/2022 PPD 05/03/2018, 7,04/29/2016,2014 TDAP 08/10/2017 Social History Tobacco Use Types Packs/Day Years Used Date Smoking Tobacco: Every Day Cigarettes 0.3 22.4 Started: 2003 Passive Smoke Exposure: Never Smokeless Tobacco: Never Tobacco Cessation:Ready to Q uit: No; Counseling Given: Yes Alcohol Use Standard Drinks/Week Comments No 0 (1 standard drink = 0.6 oz pur e alcohol) Social Connections Answer Date Recorded How often do you feel lonely or isolated from th ose around you? 1 01/31/2025 Financial Resource Strain Answer Date R ecorded Hard to pay for: Food 1 01/31/2025 Stress Answer Date Recorded Do you feel these kinds of stress these days? 1 01/31/2025 Physical Activity Answer Date Recorded Physical Activity 0 07/15/2019 Food Insecurity Answer Date Recorded Hard to pay for: Food 1 01/31/2025 Transportation Needs Answer Date Record ed Hard to pay for: Transportation 1 01/31/2025 Housing Stability Answer Date Recorded Hard to pay for: Rent/Mortgage payment 1 01/31/2025 Safety and Environment Answer Date Young rded Safety 1 03/31/2024 Utilities Answer Date Recorded Hard to pay for: Utilities 1 01/31 Employment Answer Date Recorded Employment 0 07/15/2019 [...] 82 01/31/2025 1:41 PM EDT Temperature 36.9 C (98.4 F) 01/31/2025 1:41 PM EDT Respiratory Rate 16 01/31/2025 1:41 PM EDT Oxygen Saturation 98% 01/31/2025 1:41 PM EDT Inhaled Oxygen Concentration - - Weight 92.5 kg (204 lb) 01/31/2025 1:41 PM EDT Height 157.5 cm (5' 2 ) 01/31/2025 1:41 PM EDT Body Mass Index 37.31 01/31/2025 1:41 PM EDT Plan of Treatment Upcoming Encounters Date Type Department Care Team (Late st Contact Info) Description 06/26/2025 9:00 AM EDT [facility] Visit [facility] [address] [place] [phone] Francine Lambert PA-C [address] [place] [phone] Health Maintenance Due Date Last Done Comments Anxiety Screening 1985 HPV Screening 1985 Pap Smear 09/04/2023 09/04/2020, 08/22, 09/04/2020, Additional history exists Annual Wellness (Adult): Indicated (All Coverage) 03/31/2025 03/31/2024, 10/06/2022, 09/04/2020, Additional history exists Relationship Safety Screening/Counseling 03/31/2025 03/31/2024, 01/07/2024, 12/09/2022, Additional history exists Cervical Cancer Screening 09/04/2025 Pap + HPV 09/04/2025 09/04/2020, 09/04/2020 Hypertension Screening (#1) 01/31/2026 Breast Cancer Screening (Mammogram) 04/04/2026 04/04/2024 Tobacco Cessation Counseling (#1) 04/13/2026 015, 10/03/2015 Diabetes Screening 01/28/2027 01/29/2024, 0 01/29/2024, 10/06/2022, [...] Biopsy Discontinued Excision/Leep Discontinued HPV Genotyping Discontinued [id number] Discontinued Imm-Hepatitis B Discontinued Vaginal Pap Discontinued Vulvoscopy Discontinued Procedures Procedure Name Priority Date/Time Associated Diagnosis Comments OTHER ORDERS SCANNED DOCUMENT 05/31/2025 3:00 AM EDT REFERRAL SCANNED DOCUMENT 05/22/2025 3:00 AM EDT REFERRAL SCANNED DOCUMENT 05/17/2025 3:00 AM EDT OTHER ORDERS SCANNED DOCUMENT 05/04/2025 3:00 AM EDT REFERRAL SCANNED DOCUMENT 04/10/2025 3:00 AM EDT MAMMOGRAM BI-RADS, ABSTRACTED Routine 04/04/2024 1:55 PM [...] Recently Relevant to Health Maintenance Results * OTHER ORDERS SCANNED DOCUMENT (05/31/2025 3:00 AM EDT) Only the most recent of2 resultswithin the time period is included. 05/31/2025 3:00 AM EDT Francine Dotsonkin PA-C SCAN OTHER ORDERS Final Resu lt * REFERRAL SCANNED DOCUMENT (05/22/2025 3:00 AM EDT) Only the most recent of3 resultswithin the time period is included. 05/22/2025 3:00 AM EDT Francine Lukin PA-C SCAN REFERRAL Final Result * MAMMOGRAM BI-RADS, ABSTRACTED (04/04/2024 1:55 PM EDT) BI-RADS ASSESSMENT 1 - Negative: means that there is no significant or noticeable abnormality to report. BI-RADS FOLLOW-UP 1 - Routine Screening Anatomical Region Laterality Modality Other Impressions 04/04/2024 1:55 PM EDT Result type: MM Digital Mammo Screening Result date: April 04, 2024 14:56 EDT Result status: Auth (Verified) Result title: MM Digital Mammo Screening Performed by: Tanja Wilson MD on April 04, 2024 16:38 EDT Verified by: Tanja Wilson MD on April 04, 2024 16:38 EDT Encounter info: [id number], [facility] [place], One Time OP, 04/04/2024 [...] There are scattered areas of fibroglandular density. FINDINGS: No suspicious masses, suspicious microcalcifications, or areas of architectural distortion are seen in either breast to suggest malignancy. IMPRESSION: No mammographic evidence of malignancy. RECOMMENDATION: Routine mammographic screening BI-RADS: 1 (Negative) Lay letter mailed to patient WSN: [id number] Ordering Physician: Alyssa Claros Signature Line Dictated By: Tanja Wilson MD Dictated Date/Time: 04/04/24 4:38 pm Reviewed By: Tanja Wilson MD Signed By: Tanja Wilson MD Signed Date/Time: 04/04/24 4:38 pm Transcribed By: AAMIR Account Installation Specialist Date/Time: 04/04/24 4:20 pm Birads: MM Digital Mammo Screening This document has an image Provider Louise IMG MAMMO Final Result * HEMOGLOBIN GLYCOSYLATED A1C (01/29/2024 8:37 AM EST) HEMOGLOBIN A1C 5.6 <5.7 % of total Hgb [facility] Comment: For the purpose of screening for the presence of diabetes: <5.7% Consistent with the absence of diabetes 5.7-6.4% Consistent with increased risk for diabetes (prediabetes) > or =6.5% Consistent with diabetes This assay result is consistent with a decreased risk of diabetes. Currently, no consensus exists regarding use of hemoglobin A1c for diagnosis of diabetes in children. According to [place] Diabetes Association (ADA) guidelines, hemoglobin A1c <7.0% represents optimal control in non- diabetic patients. Different metrics may apply to specific patient populations. Standards of Medical Care in Diabetes(ADA). Blood Blood / Unknown 01/29/2024 8 :37 AM EST 01/29/2024 8:40 AM EST Narrative [facility] - 01/31/2024 6:10 PM EDT FASTING:YES Francine Lambert PA-C LAB - BLOOD DRAW Edited Resu lt - Final [facility] [address] [place] [id number], [facility] [address] [place] [phone] * (ABNORMAL) LIPID PANEL (01/29/2024 8:37 AM EST) CHOLESTEROL, TOTAL 187 <200 mg/dL [facility] HDL CHOLESTEROL 35(L) > OR = 50 mg/dL [facility] TRIGLYCERIDES 114 <150 mg/dL [facility] LDL-CHOLESTEROL 130(H) 99 mg/dL (calc) [facility] Comment: Reference range: <100 Desirable range <100 mg/dL for primary prevention; <70 mg/dL for patients with CHD or diabetic patients with > or = 2 CHD risk factors. LDL-C is now calculated using the Christiano calculation, which is a validated novel method providing better accuracy than the Friedewald equation in the estimation of LDL-C. Bassam BRAGG et al. RADHA. 2013;310(19): 1720-7891 (http://education.LiveAction/faq/UHT101) CHOL/HDLC RATIO 5.3(H) <5.0 (calc) [facility] NON-HDL CHOLESTEROL 152(H) <130 mg/dL (calc) [facility] Comment: For patients with diabetes plus 1 major ASCVD risk factor, treating to a non-HDL-C goal of <100 mg/dL (LDL-C of <70 mg/dL) is considered a therapeutic option. Blood Blood / Unknown 01/29/2024 8 :37 AM EST 01/29/2024 8:40 AM EST Narrative [facility] - 01/31/2024 6:10 PM EDT FASTING:YES Francine Lambert PA-C LAB - BLOOD DRAW Final Resul t [facility] [address] [address], [facility] [address] [phone] * PAP, LIQUID BASED (09/04/2020 10:30 AM EDT) PAP normal NORMAL - ABNORMAL [facility] Cervix Cervix uteri structure / Unknown 09/04/2020 10:30 AM EDT Impressions [facility] - 09/04/2020 10:30 AM EDT Negative for squamous intraepithelial lesion and malignancy High risk HPV : Negative Results of Aptima Combo 2 Assay: Chlamydia: Negative N. Gonorrhoeae: Negative Francine Lambert PA-C LAB - PATHOLOGY AND CYTOLOGY AMBULATORY Final Result [facility] [address] [place] [id number], * PAP SMEAR W/HPV (09/04/2020) us Provider Louise LAB - PATHOLOGY AND CYTOLOGY AMB ULATORY Final Result Performing Organization Address City/[facility]/ZIP Co de Phone Number [facility] [address] [place] [address], * (ABNORMAL) HEPATITIS A,B,C PANEL (06/19/2014 12:50 PM EDT) HEPATITIS B SURFACE ANTIGEN NEGATIVE NEGATIVE [facility] HEPATITIS C VIRUS ANTIBODY NEGATIVE NEGATIVE [facility] HEPATITIS A ANTIBODY TOTAL NEGATIVE NEGATIVE [facility] HEPATITIS B CORE ANTIBODY NEGATIVE NEGATIVE [facility] HEPATITIS B SURFACE ANTIBODY POSITIVE(A) NEGATIVE [facility] Blood specimen (specimen) Blood / Unknown 06/19/2014 12:50 PM EDT 06/19/2014 1:07 PM EDT [employer] [facility] - 06/19/2014 4:51 PM EDT [employer] [address] [place] [address] [place] [id number] ORD# [id number] Francine Lambert PA-C LAB - BLOOD DRAW Edited Resu lt - Final Performing Organization Address [facility]/ZIP Co de Phone Number [facility] [address] [place] [address], * HIV-1 & HIV-2 ANTIBODIES (06/19/2014 12:50 PM EDT) HIV 1 AND 2 ANTIBODY SCREEN NEGATIVE NEGATIVE [facility] Blood specimen (specimen) Blood / Unknown 06/19/2014 12:50 PM EDT 06/19/2014 1:07 PM EDT [employer] [facility] - 06/19/2014 4:50 PM EDT [employer] [address] [place] [address] [place] [id number] ORD# [id number] Francine Lambert PA-C LAB - BLOOD DRAW Final Resul t [facility] [address] [place] [address], from Last 3 Months or Most Recently Relevant to Health Maintenance Insurance [place] [employer] [employer] [facility] [address] [employer] Care Teams Chief Of Vital Statistics Relationship Specialty Start Date End Date Francine Lambert PA-C [address] [place] [phone] PCP - General Internal Medicine 05/18/14
--- OUTSIDE RECORDS SUMMARY | 2025-06-07 14:45 | XMS_ITS | Data Portability ---
Author Organization MASHA Ru Meyers [facility], [facility] Address [address] [place] [address] Care Team Providers Care Jewelry Racker Name Role Phone Primary Care Provider Assessment Encounter Date Assessment Date Assessment LastModified by Organization Details LastModified Time 12/28/2024 12/28/2024 Foot and Ankle N ew Patient Note CHIEF COMPLAINT: Right ankle pain, swelling, dysfunction HPI: Pennie is a pleasant Chinese-speaking 39-year-old female who presents for initial evaluation with me of right ankle pain, swelling, dysfunction. x ray technician Angie utilized throughout the encounter. Previously followed by AKANKSHA Arambula who initiated conservative measures and referred her to me. She feels her symptoms initially are attributed to a significant right ankle injury that she sustained wearing high heels about 12 years ago. She felt she made a full recovery after that injury. 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 Main complaints are of pain and swelling especially with weightbearing activities but also at rest about the lateral ankle more than the medial ankle. She has been unable to work due to her symptoms for the last 6 months. She was previously treated in a boot and is now wearing an ASO brace. She tried formal physical therapy for about 3 sessions but reports that exacerbated her symptoms. When her ankle gets tired she feels it is unstable and does not fully trust it. Notes intermittent numbness and tingling affecting the ankle and foot. She is here today to discuss further treatment options. 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 PHYSICAL EXAM: Constitutional: Overweight individual in no acute distress Psychiatric: Alert and oriented Respiratory: Unlabored breathing Lymphatic: No lymphadenopathy in the foot/ankle Skin: No open wounds CV: Palpable pedal pulses Neuro: Light touch grossly intact MSK: Focused examination of the right foot and ankle- On standing exam alignment of the foot and ankle are appropriate. No deformity. She has an antalgic gait on the right. On seated exam she has generalized periarticular swelling about the entire ankle joint most pronounced laterally. She is diffusely tender on exam today over the lateral ligaments, sinus Tarsi interval with swelling, anterior ankle, medial gutter, deltoid ligaments, posterior ankle. She has purpleish skin discoloration asymmetric from the contralateral side consistent with venous stasis. She has limited ankle and hindfoot range of motion and guards on exam. She guards ligamentous testing which is grossly stable. Guards examination of her peroneal tendons. She is grossly motor and sensory intact. She has a palpable DP and PT pulse. Her foot is cool compared to the contralateral side but is well-perfused. IMAGING: Previous weightbearing x-rays of the right foot, 3 views including AP comparison view reviewed. Intact symmetric mortise without evidence of instability. Appropriate syndesmotic alignment. Appropriate lateral alignment. No acute bony abnormality. MRI of the right ankle and hindfoot dated 09/14/2024 ([facility]) reviewed. There is a small effusion of the anterior ankle and the subtalar joint. No obvious intra-articular osteochondral lesion. Nonspecific scattered T2 hyperintensity of the distal tibia and the talar dome. No evidence of AVN of the talus. There is attenuation with intermediate T2 signal within the lateral ligaments indicative of a prior sprain. Lateral ligaments and deltoid appear intact. No significant tendinopathy or tearing of the peroneal tendons. ASSESSMENT: History of right ankle sprain, ongoing pain and reddy, limited range of motion and symptoms concerning for CRPS PLAN: We discussed the diagnosis, treatment to date, and the plan moving forward. Discussed her symptoms, exam, and presentation. Reviewed her imaging findings in detail. She clearly has pain swelling and dysfunction related to her ankle joint. She has some signs of prior injury and pathology on her MRI. My concern with her presentation is aspects of her symptoms and exam are out of proportion to the findings related to her prior injury. I worry if we were to move forward with a surgical plan it may exacerbate her symptoms due to her significant swelling pain and dysfunction. This may make her symptoms worse. She would benefit most from a physical therapy program working on desensitization, range of motion, and swelling mitigation strategies. I believe the corticosteroid injection could help to improve her current symptoms and toleration of physical therapy. Discussed the risk, benefits and alternatives. She tolerated the injection well today. Physical therapy prescription provided. I gave her a prescription for an ankle compression sleeve which is less restricted than an ASO brace. She is requesting a note for work. She does not feel she can currently work with her symptoms. Work note provided for her to stay out of work for the time being. Plan to see her back in 2 months to follow her progress and for reexamination. No x-rays at that visit. Patient agrees with the plan, all questions answered. I have reviewed prior internal notes. I have reviewed imaging, radiographs, advanced imaging, and results. I have provided independent interpretation of tests. Speech recognition senior asic engineer software was used to create portions of this document. An attempt at proofreading has been made to minimize errors. Please call for corrections. [email or web address] Not available 12/28/2024 15:11:59 02/27/2025 02/27/2025 Patient rescheduled due to medical numerical control operator system being down and lack of available medical numerical control operator. Do not charge. [email or web address] Not available 02/27/2025 18:00:48 03/20/2025 03/20/2025 Foot and Ankle H &P CHIEF COMPLAINT: Right ankle synovitis, instability, peroneal tendinitis HPI: Pennie presents for routine follow-up. She was last seen by me almost 3 months ago. Here today with her . x ray technician Katalina ([id number]) used throughout the encounter. Patient reports she continues to have pain and distrust in her right ankle. She finished her course of physical therapy. Pain is anterior lateral and worse with activity. She can have pain at rest. Reports of moles on her all the time . It limits her activity. Also occasionally describes numbness and tingling sensation in the toes and pain at rest. She has tried activity modification, bracing and booting, anti-inflammatorie s, physical therapy. 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 PHYSICAL EXAM: Constitutional: Healthy appearing individual in no acute distress Psychiatric: Alert and oriented Respiratory: Unlabored breathing Lymphatic: No lymphadenopathy in the foot/ankle Skin: No open wounds CV: Regular rate, palpable pedal pulses Neuro: Light touch grossly intact MSK: Focused examination of the right foot and ankle- On standing exam alignment of the foot and ankle are appropriate. No deformity. She has an antalgic gait on the right. On exam today she has swelling of the lateral ligaments, sinus Tarsi, peroneal tendons. She is tender over the lateral ligaments and the peroneal tendons. Nontender over the anterior ankle, medial malleolus, deltoid, syndesmosis. Skin color appears equal bilaterally. Tolerates exam better today. Solid endpoint on ligamentous testing with slight guarding. Feels stable compared to the contralateral side. She is grossly motor and sensory intact. She has a palpable DP and PT pulse. Her foot is cool compared to the contralateral side but is well-perfused. IMAGING: Previous weightbearing x-rays of the right foot, 3 views including AP comparison view reviewed. Intact symmetric mortise without evidence of instability. Appropriate syndesmotic alignment. Appropriate lateral alignment. No acute bony abnormality. MRI of the right ankle and hindfoot dated 09/14/2024 ([facility]) reviewed. There is a small effusion of the anterior ankle and the subtalar joint. No obvious intra-articular osteochondral lesion. Nonspecific scattered T2 hyperintensity of the distal tibia and the talar dome. No evidence of AVN of the talus. There is attenuation with intermediate T2 signal within the lateral ligaments indicative of a prior sprain. Lateral ligaments and deltoid appear intact. Small amount of fluid around the peroneal tendons without evidence of tearing. ASSESSMENT: Right ankle synovitis, instability, peroneal tendinitis PLAN: We discussed the diagnosis, treatment to date, and the plan moving forward. Again reviewed her presentation and imaging in detail. She is very frustrated with conservative measures. She is requesting surgery. I do agree that she has exhausted conservative measures. My concern with surgical intervention is at her initial evaluation she had some signs that are consistent with CRPS. She tolerates exam much better today and symptoms have improved from that standpoint. She is at risk for CRPS if we do move forward with surgical invention which I made clear. We discussed the surgical plan, rehab protocol, anticipated recovery. Discussed the risk, benefits, alternatives. She understands surgery is not an exact science and symptoms may not fully improved. She would like to move forward. Plan- RIGHT ankle arthroscopy with synovectomy, ankle stress exam and collateral ligament reconstruction as indicated, peroneal tendon evaluation with tenolysis versus repair. Both non-operative and operative treatment options were discussed. The patient does wish to proceed with surgical intervention. The potential risks, benefits, and alternatives of the procedure were discussed in detail with the patient. Risks include, but are not limited to: infection, bleeding, damage to blood vessels and/or nerves, damage to bones and/or joints, damage to ligaments, tendons, and soft tissues, wound healing complication, hardware complication, malunion/nonunion, post traumatic arthritis, the potential need for future or revision surgery, the inherent risks associated with anesthesia such as cardiac or pulmonary complications. In addition, there is the potential that pain will not be relieved or will only be partially relieved. The rehabilitative course and potential for a prolonged recovery were also discussed. We also discussed the potential for DVT and/or PE as well as prophylaxis. The patient demonstrates understanding and in spite of these risks wishes to proceed with surgery. Informed consent obtained. All questions answered. Patient was counseled regarding smoking/vaping cessation and encouraged to stop. I educated the patient about the dangers of smoking/vaping. Smoking/vaping increases complications with surgery, specifically wound healing, infection, nonunion, and amputation. Currently the patient is asymptomatic from smoking. I also encouraged the patient to talk with their medical doctor. 5 minutes was spent today going over these issues. Speech recognition senior asic engineer software was used to create portions of this document. An attempt at proofreading has been made to minimize errors. Please call for corrections. Not available 03/21/2025 18:06:14 Plan of Treatment Reminders Order Date Submit Date Provider Last Modified By Organization Details Last Modified Time Details Appointments POST OP 15 2024 01:30P M Augustin Pearce MD Not available Not available Not available Lab None recorded . Referral physical therapis t referral 2024 025 [email or web address] Not available 01/16/2025 15:47:58 Procedures None recorded . Surgeries ankle arthrosc opy (SURG) 2024 025 [email or web address] [facility], [address], [place], [address], 03/22/2025 15:06:10 Imaging None recorded . Medication Orders None recorded . Patient TargetsNo targets recorded. Patient Instructions Encounter Date Encounter Id Patient Instructions Last Modified By Organization Details Last Modified Time 05/22/2025 [id number] application of cast, posterior ankle/leg* - right posterior splint neutral with side guessets removable rm 102 give meena 10 mins to take out sutures [email or web address] Not available 05/22/2025 16:43:33 Reason for Referral Physical Therapist Referral for Sprain of right ankle Referring Physician: Augustin Pearce, Orthopedic Surgery, Encounter Date: 12/28/2024 Results Created Date Observation Date Name Description Value Unit Range Abnormal Flag Note LastModifiedBy Organization Detail LastModifiedTime 04/18/2004/18/2025 CBC, PLATE LET, NO DIFFE RENTI AL WBC 4.2 x10e3 /uL 3.4-10 .8 normal Not Available [facility] ([facility]) [address] [place], [address], 04/19/2025 00:05:18 04/18/2004/18/2025 CBC, PLATE LET, NO DIFFE RENTI AL RBC 4.71 x10e6 /uL 3.77-5 .28 normal Not Available [facility] ([facility]) [address] [place], [address], 04/19/2025 00:05:18 04/18/20 25 04/18/2025 CBC, PLATE LET, NO DIFFE RENTI AL hemoglobin 13.0 g/dL 11.1-1 5.9 normal Not Available [facility] ([facility]) [address] [place], [address], 04/19/2025 00:05:18 04/18/2004/18/2025 CBC, PLATE LET, NO DIFFE RENTI AL hematocrit 39.9 % 34.0-4 6.6 normal Not Available [facility] ([facility]) [address] [place], [address], 04/19/2025 00:05:18 04/18/2004/18/2025 CBC, PLATE LET, NO DIFFE RENTI AL MCV 85 fL 79-97 normal Not Available [facility] ([facility]) [address] [place], [address], 04/19/2025 00:05:18 04/18/2004/18/2025 CBC, PLATE LET, NO DIFFE RENTI AL MCH 27.6 pg 26.6-3 3.0 normal Not Available [facility] ([facility]) [address] [place], [address], 04/19/2025 00:05:18 04/18/2004/18/2025 CBC, PLATE LET, NO DIFFE RENTI AL MCHC 32.6 g/dL 31.5-3 5.7 normal Not Available [facility] ([facility]) [address] [place], [address], 04/19/2025 00:05:18 04/18/2004/18/2025 CBC, PLATE LET, NO DIFFE RENTI AL RDW 15.9 % 11.7-1 5.4 above high normal Not Available [facility] ([facility]) [address] [place], [address], 04/19/2025 00:05:18 04/18/2004/18/2025 CBC, PLATE LET, NO DIFFE RENTI AL platelets 268 x10e3 /uL 150-45 0 normal Not Available [facility] ([facility]) [address] [facility], [place], [address], 04/19/2025 00:05:18 04/18/20 25 04/18/2025 CBC, PLATE LET, NO DIFFE JENNIE POLK NRBC X RAY TECHNICIAN Not Available [facility] ([facility]) [address] [facility], [place], [address], 04/19/2025 00:05:18 Result Notes None recorded. Problems Name Problem SNOMED Code Status Onset Date Resolution Date Notes Provider Name and Address Organization Details Recorded Time Pain of right ankle joint 8671501546468 9106 Active 2023 Freddy Machuca PA-C [address], [place], [address], [facility]3] [facility] 4 08:06:48 Peroneal tenosynovit is 623165893 Active 2023 Freddy Machuca PA-C [address], [facility] [place], [address], [facility]3] [facility] 4 07:59:26 Sprain of right ankle 7497527131137 9105 Active 2023 Freddy Machuca PA-C [address], [facility] [place], [address], [facility]3] [facility] 4 08:23:21 Problem Notes None recorded. Procedures Surgical History Date Name Laterality Status Provider Name and Address Organization Details Recorded Time 5 Splint_Short Leg Plaster_11+ completed BRITTANY SHEFFIELD [facility] 05/17/2025 14:14:08 5 Ankle Joint Asp & Inj, L/R Celestone 2cc completed Augustin Pearce MD [address], [place], [address], [facility]3] [facility] 12/28/2024 15:03:26 4 [facility] 13:54:29 4 Cast_Short Leg_11+ completed BRITTANY SHEFFIELD [facility] 09/11/2024 09:33:18 4 Cast Removal completed BRITTANY SHEFFIELD [facility] 09/08/2024 09:51:13 4 Cast_Short Leg_11+ completed [facility] 09/01/2024 13:16:28 4 Cast_Short Leg_11+ completed [facility] 08/21/2024 10:13:22 4 Cast Removal completed [facility] 08/21/2024 10:11:44 4 Cast_Short Leg_11+ completed [facility] 08/14/2024 13:36:34 4 Cast Removal completed [facility] 08/11/2024 13:01:34 4 Cast_Short Leg_11+ completed [facility] 08/01/2024 15:58:48 Imaging Results None recorded. Procedure Notes None recorded. Medical Equipment None Reported. Allergies Allergen ID Allergen Name Allergen Category Reaction Reaction Severity Criticality Documentation Date Start Date Code Code System Note Provider Name and Address Organization Details Recorded Time 641377 acetamino phen / oxycodone medicatio n Not available Not available Not available 07/26/2024 06450 3 RxNorm [facility] 4 09:38:46 Medications Name Sig Start Date Stop Date Status Note LastModified by Organization Details LastModified Time medroxyprog esterone 10 mg tablet TAKE 1 TABLET BY MOUTH TWICE DAILY active Not Available Not Available No t Available terconazole 0.4 % vaginal cream USE 1 APPLICATI ON VAGINALLY DAILY AT BEDTIME FOR 7 DAYS active Not Available Not Available No t Available ibuprofen 800 mg tablet TAKE 1 TABLET BY MOUTH EVERY 8 HOURS FOR 7 DAYS NEEDED active Not Available Not Available No t Available fluconazole 150 mg tablet TAKE 1 TABLET BY MOUTH 1 TIME. REPEAT DOSE IN 72 HOURS active Not Available Not Available No t Available Nystop 100,000 unit/gram topical powder APPLT TO AFFECTED FOUR TIMES DAILY active Not Available Not Available No t Available meloxicam 15 mg tablet TAKE 1 TABLET BY MOUTH EVERY DAY AFTER MEAL active Not Available Not Available No t Available prednisone 20 mg tablet TAKE 2 TABLETS BY MOUTH EVERY DAY active Not Available Not Available No t Available miconazole nitrate 2 % vaginal cream INSERT 1 APPLICATO RFUL VAGINALLY EVERY NIGHT AT BEDTIME FOR 7 DAYS active Not Available Not Available No t Available aspirin 81 mg tablet,tatiana yed release Take 1 tablet twice a day by oral route for 30 days. 2024 active Not Available Not Available Not Avai lable zinc oxide 20 % topical ointment APPLY TOPICALLY NEEDED FOR DRY SKIN active Not Available Not Available No t Available amoxicillin 500 mg tablet TAKE 1 TABLET BY MOUTH EVERY 8 HOURS UNTIL ALL TAKEN active Not Available Not Available No t Available propranolol 10 mg tablet TAKE 1 TABLET BY MOUTH TWICE DAILY active Not Available Not Available No t Available cephalexin 500 mg capsule TAKE 1 CAPSULE BY MOUTH EVERY 8 HOURS active Not Available Not Available No t Available Banophen 25 mg tablet TAKE 1 TABLET BY MOUTH EVERY 6 HOURS NEEDED ITCHING active Not Available Not Available No t Available clotrimazol e-betametha sone 1 %-0.05 % topical cream APPLY TO THE AFFECTED AREA TWICE DAILY FOR 7 DAYS active Not Available Not Available No t Available lidocaine 5 % topical patch APPLY 1 PATCH TOPICALLY DAILY FOR PAIN *ON FOR 12 HOURS/ OFF FOR 12 HOURS active Not Available Not Available No t Available nicotine 21 mg/[address]dermal patch [address] 1 PATCH ON SKIN DAILY active Not Available Not Available No t Available omeprazole 20 mg capsule,del ayed release TAKE 1 CAPSULE BY MOUTH TWICE DAILY active Not Available Not Available No t Available hydroxyzine HCl 25 mg tablet TAKE 1 TABLET BY MOUTH EVERY 8 HOURS NEEDED ITCHING active Not Available Not Available No t Available norethindro ne acetate 5 mg tablet TAKE 2 TABLETS BY MOUTH DAILY active Not Available Not Available No t Available ibuprofen 600 mg tablet TAKE 1 TABLET BY MOUTH EVERY 6 HOURS NEEDED FOR PAIN active Not Available Not Available No t Available methimazole 10 mg tablet TAKE 1 TABLET BY MOUTH EVERY 8 HOURS active Not Available Not Available No t Available propranolol 20 mg tablet TAKE 1 TABLET BY MOUTH THREE TIMES DAILY active Not Available Not Available No t Available loratadine 10 mg tablet TAKE 1 TABLET BY MOUTH EVERY NIGHT AT BEDTIME active Not Available Not Available No t Available diazepam 5 mg tablet TAKE 1 TABLET BY MOUTH 1 TIME active Not Available Not Available No t Available amoxicillin 875 mg-ezrau m clavulanate 125 mg tablet TAKE 1 TABLET BY MOUTH TWICE A DAY 08/29 completed Not Available Not Available Not Available Tylenol Extra Strength 500 mg tablet Take 2 tablets every 8 hours by oral route as needed for 7 days. 2024 active Not Available Not Available Not Avai lable oxycodone 5 mg tablet Take 1 tablet every 6 hours by oral route for 5 days. 2024 active Not Available Not Available Not Avai lable nitrofurant oin monohydrate /macrocryst als 100 mg capsule TAKE 1 CAPSULE BY MOUTH TWICE A DAY active Not Available Not Available No t Available Vitals Date Recorded Body height Body mass index (BMI) Body weight Provider Name and Address Organization Details Last Updated DateTime 12/28/2024 162.56 cm 35.2 kg/m2 83862.44 g KALA RAMON [facility] 12/28/2024 12:55:56 Date Recorded Body height Body mass index (BMI) Body weight Provider Name and Address Organization Details Last Updated DateTime 03/20/2025 162.56 cm 35.2 kg/m2 39452.44 g Jackie Chaparro [facility] 03/20/2025 14:14:52 Date Recorded Body height Body mass index (BMI) Body weight Provider Name and Address Organization Details Last Updated DateTime 05/22/2025 162.56 cm 35.2 kg/m2 68227.44 g Meena Pacheco [facility] 05/22/2025 15:44:34 Social History None recorded. Functional Status None recorded. Mental Status None recorded. Family History Nothing Reported. Medical History No medical history recorded. Gynecological HistoryNo gynecological history recorded. Obstetrics History GPAL:G 0 P 0 0 0 0 Past Encounters Encounter ID Performer Location Encounter Start Date Encounter Closed Date Diagnosis/Indication Diagnosis SNOMED-CT Code Diagnosis ICD10 Code Diagnosis Note [id number] JONATHAN Arambula [address] [place] [address] 07/26/2024 09:26:48 08/16/2024 14:20:31 Pain of right ankle joint [id number] 8579590 M25.571 Peroneal tenosynovitis 733505941 M65.9 [id number] Freddy Machuca PA-C [place] [address] [place] [address] 08/01/2024 15:30:18 08/01/2024 15:59:36 Synovitis of right ankle joint [id number] 913868 M65.9 [id number] Freddy Machuca PA-C [place] [address] [place] [address] 08/11/2024 12:46:42 08/11/2024 13:04:36 Pain in right lower limb 658114714 M79.566 [id number] Freddy Machuca PA-C [facility] [address] [place] [address] 08/14/2024 13:09:02 08/14/2024 13:37:51 Pain in right lower limb 859182674 M79.078 [id number] Freddy Machuca PA-C [facility] [address] [place] [address] 08/21/2024 09:42:49 08/21/2024 10:15:02 Pain of right ankle joint [id number] M25.684 [id number] Freddy Machuca PA-C [facility] [address] [place] [address] 08/29/2024 08:33:14 09/25/2024 07:55:08 Pain of right ankle joint [id number] M25.571 Peroneal tenosynovitis [id number] M65.90 [id number] Freddy Machuca PA-C [facility] [address] [place] [address] 09/01/2024 12:43:20 09/01/2024 13:17:57 Ankle pain [id number] M25.684 [id number] Dahlia Golden PA-C [facility] [address] [place] [address] 09/08/2024 08:59:58 09/08/2024 09:51:48 Synovitis and tenosynovitis [id number] M65.90 [id number] Freddy Machuca PA-C [facility] [address] [place] [address] 09/11/2024 09:02:13 09/11/2024 09:36:40 Synovitis and tenosynovitis [id number] M65.90 [id number] Freddy Machuca PA-C [facility] [address] [place] [address] 09/13/2024 13:38:19 09/13/2024 13:58:53 Pain of right ankle joint [id number] M25.621 [id number] Freddy Machuca PA-C [facility] [address] [place] [address] 09/26/2024 08:56:14 10/24/2024 10:43:28 Sprain of right ankle [id number] S93.401D [id number] Freddy Machuca PA-C [facility] - [facility] [address] [place] [address] 12/21/2024 12:45:43 01/11/2025 14:47:28 Sprain of right ankle [id number] S93.401D [id number] Augustin Pearce MD [facility] - [facility] [address] [place] [address] 12/28/2024 12:44:39 01/16/2025 15:47:57 Sprain of right ankle [id number] S93.401D Pain of ri ght ankle joint [id number] M25.571 Peroneal tenosynovitis [id number] M65.90 [id number] MD EUL[facility]IA Olivia - [facility] [address] [place] [address] 02/27/2025 09:07:14 02/27/2025 18:00:57 [id number] MD [facility] Olivia [facility] Clinical [address] [place] [address] 03/20/2025 13:24:07 03/23/2025 14:56:43 Pain of right ankle joint [id number] M25.571 Peroneal tenosynovitis [id number] M65.90 Sprain of right ankle 11 [id number] S93.401D [id number] MD EULALIA Olivia [facility] [address] [place] [address] 05/17/2025 13:35:00 05/17/2025 14:14:51 Postoperative visit [id number] Z48.89 [id number] Dahlia Golden PA-C [facility] - [facility] [address] [place] [address] 05/22/2025 14:34:33 06/05/2025 11:54:18 Synovitis of right ankle joint [id number] M65.971 Health Concerns Section Related Observation LastModified by Organization Detai ls LastModified Time None Recorded Concern Status LastModified by Organization Details LastModified Time None Recorded Advance Directives Directive None Recorded Payers Insurance Date Sequence Insurance Name Policy Number Policy Billingsley Covered Member ID Billingsley Member ID Guarantor Name 05/22/2025 1 [place] [facility] Pennie [facility] [id number] [facility] Notes Date Note Type Note Provider Name and Address Organization Details Recorded Time 05/22/2025 text/html I am seeing this patient under the supervision of Dr. Brennan, who was available but who did not see the patient. HPI: Patient is a 40-year-old female presenting today about 2 weeks status post right ankle arthroscopy with synovectomy, right peroneus longus and brevis tenolysis with Dr. Pearce on 05/07/2025. She has been doing fairly well since surgery. Has been nonweightbearing in a post operative splint. Compliant with nonweightbearing status. States she has not been taking her aspirin. Denies any interval trauma. Denies any fevers, chills, or paresthesias. PFMSH, Meds and ROS reviewed, updated and signed by me, and is located in the patient's chart. PHYSICAL EXAMINATION: The patient is well appearing and in no apparent distress. Alert and oriented x 3. Examination of the right foot and ankle reveals well healing surgical incisions with sutures in place. Well aligned ankle. Minimal postoperative edema. No erythema or warmth. No evidence of infectious changes. She has good ankle range of motion in the sagittal plane. Ankle eversion and inversion were not tested. Calf soft, nontender. Sensation intact to light touch in the right lower extremity. IMPRESSION: 2 weeks status post surgery as above PLAN: Discussed the findings and situation with the patient today. She seems be doing fairly well overall. Sutures were removed. She will transition to a tall cam boot and will begin slowly advancing her weightbearing in the boot. We discussed the role and importance of aspirin in DVT prophylaxis, patient will start this. Follow up in [address] Pearce as scheduled at which point patient will be fully weightbearing in her boot and likely start physical therapy. Patient understands and agrees with the plan. All questions were answered. Call with questions or concerns. The patient is ambulatory, but has weakness and/or instability of their extremity which requires stabilization from this semi-rigid/rigid orthosis to improve their function. Verbal and written instructions for the use and application of this item were given. Patient was instructed that should the brace result in increased pain, decreased sensation, increased swelling or an overall worsening of their medical condition, to please contact our office immediately. Tall Cam boot and crutches Speech recognition senior asic engineer software was used to create portions of this document. An attempt at proofreading has been made to minimize errors. Please call for corrections. Dahlia Golden PA-C [address] [facility] [address], [place], [address], [facility] 05/22/2025 16:31:12 OBGyn Episode No OBEpisode recorded.
== END 2025-06-07 14:38 | disposition home or self-care (01) ==
LOC: HO.PMC 14:00
PROVIDERS: PCP Physician Assistant; Visit Provider Nurse Practitioner Family
DX: M25.571 Pain in right ankle and joints of right foot (principal); M12.571 Traumatic arthropathy, right ankle and foot; Z98.890 Other specified postprocedural states; M54.50 Low back pain, unspecified; G89.29 Other chronic pain
CPT/HCPCS: 99214

== ENCOUNTER → 2025-06-07 13:59 | Outpatient (BNVA) | payer MEDICAID, SELFPAY | PROVIDERS: PCP Physician Assistant; Visit Provider Nurse Practitioner Family | DX: M25.571 Pain in right ankle and joints of right foot (principal); M12.571 Traumatic arthropathy, right ankle and foot; M54.50 Low back pain, unspecified; G89.29 Other chronic pain; Z98.890 Other specified postprocedural states | CPT/HCPCS: 99212 ==

== ENCOUNTER 2025-07-12 06:12 | Outpatient (REF) | payer MEDICAID, SELFPAY ==
--- OUTSIDE RECORDS SUMMARY | 2025-07-12 06:14 | XMS_ITS | Clinical Summary ---
Author Organization [facility] Address [address] [facility] 7t [place] [address] Care Team Providers Care White Shoe Ragger Name Role Phone Unavailable Primary Care Provider Unavailabl e Encounters Date Type Department Care Team Description 06/12/2025 Population Health Risk Score [facility] (C3) Department [address] [facility] [address] [place] [address] Provider, Population Health Generic from Last 3 Months Social History Tobacco Use Types Packs/Day Years Used Date Smoking Tobacco: Never Assessed Comments Unknown Sex and Gender Information Value Date Recorded Sex Assigned at Female 09/21/2022 10:26 AM EDT Legal Sex Female 10:26 AM EDT Gender Identity Not on file Sexual Orientation Not on file Plan of Treatment Health Maintenance Due Date Last Done Comments Depression Screening 1983 Lipid Panel 1983 Disability Screening 1983 Alcohol/Substance Use Screening 1995 Tobacco Screening 1995 Family Planning (PISQ) 1998 HPV Vaccines (1 - 3-dose series) 1998 Hepatitis C Screening 2001 Hepatitis B Vaccines (1 of 3 - 19+ 3-dose series) 2002 Pap Smear 2004 Cervical Cancer Screening 2013 HPV/Cotest 2013 Mammogram 2023 COVID-19 Vaccine (1 - 2023-2 5 season) 2024 Influenza Vaccine (#1) 2025 12/07/2012 DTaP/Tdap/Td Vaccines (2 - T d or Tdap) 08/10/2027 08/10/2017 Zoster Vaccines (1 of 2) 2033 RSV Patients and Pa tients Aged 60 years or older (1 - 1-dose 75+ series) 2058 HIV Screening Completed 06/19/2014 Pneumococcal Vaccine: Pediat rics (0 to 5 Years) and At-Risk Patients (6 to 49) Years Aged Out 10/06/2022 No longer eligi ble based on patient's age to complete this topic HIB Vaccines Aged Out No longer eligi [...] patient's age to complete this topic Meningococcal Vaccine Aged Out No evelyn nataliia eligible based on patient's age to complete this topic RSV under 20 months Aged Out No longe r eligible based on patient's age to complete this topic Rotavirus Vaccines Aged Out No longer eligible based on patient's age to complete this topic
--- OUTSIDE RECORDS SUMMARY | 2025-07-12 06:14 | XMS_ITS | Clinical Summary ---
Author Organization [facility] Address [address] [place] [address] Care Team Providers Care Sheet Writer Name Role Phone Francine Lambert PA-C Primary Care Provider Source Comments PLEASE NOTE, if this patient [...] by mouth once daily 90 Tablet 2 4 Active nystatin (MYCOSTATIN) 100,000 unit/gram powderIndication [...] Active Problems Problem Noted Date Diagnosed Date Renal cyst, acquired, right 10 mm 05/2025 Hyperthyroidism 202401/31/2025 Traumatic arthritis of right ankle 03/31/2024 Chronic pelvic pain in female 03/31/2024 Lumbar disc disease 09/04/2020 Non morbid obesity 08/29/2020 Dyspepsia 03/23/2018 Functional constipation 01/26/2018 H. pylori infection 07/201608/04/2016 Tobacco use 09/23/2015 Carpal tunnel syndrome of right wrist 04/05/2015 Hirsutism 05/17/2014 Encounters Date Type Department Care Team Description 06/26/2025 9:00 AM EDT Office Visit [address] [address] Francine Lambert PA-C from Last 3 Months Immunizations Immunization Administration Dates Next Due INFLUENZA, SEASONAL, INJECTA BLE, PRESERVATIVE FREE 12/07/2012 MMR (MMR II/Priorix) 06/28/2019 PNEUMOCOCCAL CONJUGATE PCV 2 0 (Prevnar 20) 10/06/2022 PPD 05/03/2018, 7,04/29/2016,2014 TDAP 08/10/2017 Social History Tobacco Use Types Packs/Day Years Used Date Smoking Tobacco: Every Day Cigarettes 0.3 22.5 Started: 2003 Passive Smoke Exposure: Never Smokeless [...] Safety and Environment Answer Date Young rded How often does anyone, inclu ding family and friends, physically hurt you? 1 06/26/2025 Utilities Answer Date Recorded Hard to pay [...] Sign Reading Time Taken Comments Blood Pressure 120/80 06/26/2025 8:59 AM EDT Pulse 67 06/26/2025 8:59 AM EDT Temperature 36.9 C (98.5 F) 06/26/2025 8:59 AM EDT Respiratory Rate 16 06/26/2025 8:59 AM EDT Oxygen Saturation 99% 06/26/2025 8:59 AM EDT Inhaled Oxygen Concentration - - Weight 90.7 kg (200 lb) 06/26/2025 8:59 AM EDT Height 157.5 cm (5' 2 ) 06/26/2025 8:59 AM EDT Body Mass Index 36.58 06/26/2025 8:59 AM EDT Plan of Treatment Health Maintenance Due Date Last Done Comments Anxiety Screening 1983 HPV Screening 1983 Pap Smear 09/04/2023 09/04/2020, 08/22, 09/04/2020, Additional history exists [id number] ( season) 2024 Annual Wellness (Adult): Indicated (All Coverage) 03/31/2025 03/31/2024, 10/06/2022, 09/04/2020, Additional history exists Imm-Influenza (#1) 2025 12/07/2012 Cervical Cancer Screening 09/04/2025 Pap + HPV 09/04/2025 09/04/2020, 09/04/2020 Breast Cancer Screening (Mammogram) 04/04/2026 04/04/2024 Hypertension Screening (#1) 06/26/2026 Relationship Safety Screening/Counseling 06/26/2026 06/26/2025, 03/31/2024, 01/07/2024, Additional history exists Tobacco Cessation Counseling (#1) 06/26/2026 015, 10/03/2015 Diabetes Screening 01/28/2027 01/29/2024, 0 01/29/2024, 10/06/2022, Additional history exists Lipid Screening 01/28/2027 01/29/2024, 09/22, 08/29/2020, Additional history exists LARC-Liletta IUD 06/24/2027 06/24/2021 Imm-DTaP/Tdap/Td (2 - Td or Tdap) 08/10/2027 017 HIV Screening Completed 06/19/2014 Hepatitis C Screening Completed 06/19/2014 Imm-Pneumococcal Completed 10/06/2022 Alcohol and Drug Screen Completed 02/01/20 25, 03/31/2024, 01/07/2024, Additional history exists Depression Annual Screen Completed 025, 06/14/2015, 08/06/2014 (Declined) Cervical Ablation/Cold-Knife Conization Discontinued Cervical Cryotherapy Discontinued Colposcopy Discontinued Endometrial Biopsy Discontinued Excision/Leep Discontinued HPV Genotyping Discontinued Imm-Hepatitis B Discontinued Vaginal Pap Discontinued Vulvoscopy Discontinued Procedures Procedure Name Priority Date/Time Associated Diagnosis Comments US RENAL (KIDNEYS) BILAT Routine 07/03/2025 3:00 AM EDT Renal cyst, acquired, right 10 mm 05/2025 REFERRAL SCANNED DOCUMENT 06/27/2025 3:00 AM EDT REFERRAL SCANNED DOCUMENT 06/07/2025 3:00 AM EDT OTHER ORDERS SCANNED DOCUMENT 05/31/2025 3:00 AM EDT REFERRAL SCANNED DOCUMENT 05/22/2025 3:00 AM EDT REFERRAL SCANNED DOCUMENT 05/17/2025 3:00 AM EDT OTHER ORDERS SCANNED DOCUMENT 05/04/2025 3:00 AM EDT MAMMOGRAM BI-RADS, ABSTRACTED Routine [...] Recently Relevant to Health Maintenance Results * US RENAL (KIDNEYS) BILAT (07/03/2025 3:00 AM EDT) 07/03/2025 3:00 AM EDT us Francine Lukin PA-C IMG ULTRASOUND Final Result [facility] DI[facility]NOSTIC IMAGING Corporate Office [address], [address] [place] [address], [place] [phone] * REFERRAL SCANNED DOCUMENT (06/27/2025 3:00 AM EDT) Only the most recent of4 resultswithin the time period is included. 06/27/2025 3:00 AM EDT us Francine Lukin PA-C SCAN REFERRAL Final Result * OTHER ORDERS SCANNED DOCUMENT (05/31/2025 3:00 AM EDT) Only the most recent of2 resultswithin the time period is included. 05/31/2025 3:00 AM EDT us Francine Lukin PA-C SCAN OTHER ORDERS Final Resu lt * MAMMOGRAM BI-RADS, ABSTRACTED (04/04/2024 1:55 PM [...] April 04, 2024 16:38 EDT Encounter info: [id number], [facility], One Time OP, 04/04/2024 - 04/04/2024 * [...] (Negative) Lay letter mailed to patient WSN: [id number] Ordering Physician: Alyssa Claros Signature Line Dictated By: Tanja Wilson MD Dictated Date/Time: 04/04/24 4:38 pm Reviewed By: Tanja Wilson MD Signed By: Tajna Wilson MD Signed Date/Time: 04/04/24 4:38 pm Transcribed By: AAMIR Pattern Changer Date/Time: 04/04/24 4:20 pm [facility]: MM Digital Mammo Screening This document has an image us Provider Louise GALLEGOS MAMMO Final Result * HEMOGLOBIN GLYCOSYLATED A1C (01/29/2024 8:37 AM EST) HEMOGLOBIN A1C 5.6 <5.7 % of total Hgb [facility] Comment: For the purpose of screening for the presence of diabetes: <5.7% Consistent with the absence of diabetes 5.7-6.4% Consistent with increased risk for diabetes (prediabetes) > or =6.5% Consistent with diabetes This assay result is consistent with a decreased risk of diabetes. Currently, no consensus exists regarding use of hemoglobin A1c for diagnosis of diabetes in children. According to [place] Diabetes Association (ADA) guidelines, hemoglobin A1c <7.0% represents optimal control in non- diabetic patients. Different metrics may apply to specific patient populations. Standards of Medical Care in Diabetes(ADA). Blood Blood / Unknown 01/29/2024 8 :37 AM EST 01/29/2024 8:40 AM EST Narrative [facility] - 01/31/2024 6:10 PM EDT FASTING:YES us Francine Lambert PA-C LAB - BLOOD DRAW Edited Resu lt - Final Performing Organization Address [facility] Co de Phone Number [facility] [address] [address], [facility] [address] [address] * (ABNORMAL) LIPID PANEL (01/29/2024 8:37 AM EST) CHOLESTEROL, TOTAL 187 <200 mg/dL [facility] HDL CHOLESTEROL 35(L) > OR = 50 mg/dL [facility] TRIGLYCERIDES 114 <150 mg/dL [facility] LDL-CHOLESTEROL 130(H) 99 mg/dL (calc) [facility] Comment: Reference range: <100 Desirable range <100 mg/dL for primary prevention; <70 mg/dL for patients with CHD or diabetic patients with > or = 2 CHD risk factors. LDL-C is now calculated using the Bassam-Brandi calculation, which is a validated novel method providing better accuracy than the Friedewald equation in the estimation of LDL-C. Bassam SS et al. RADHA. 2013;310(19): 8820-9825 (http://education.SupportPay/faq/KUS773) CHOL/HDLC RATIO 5.3(H) <5.0 (calc) [facility] NON-HDL CHOLESTEROL 152(H) <130 mg/dL (calc) [facility] Comment: For patients with diabetes plus 1 major ASCVD risk factor, treating to a non-HDL-C goal of <100 mg/dL (LDL-C of <70 mg/dL) is considered a therapeutic option. Blood Blood / Unknown 01/29/2024 8 :37 AM EST 01/29/2024 8:40 AM EST Narrative [facility] - 01/31/2024 6:10 PM EDT FASTING:YES us Francine Lambert PA-C LAB - BLOOD DRAW Final Resul t [facility] [address] [address], [facility] [address] [place] [address] * PAP, LIQUID BASED (09/04/2020 10:30 AM EDT) PAP normal NORMAL - ABNORMAL [facility] Cervix Cervix uteri structure / Unknown 09/04/2020 10:30 AM EDT Impressions [facility] - 09/04/2020 10:30 AM EDT Negative for squamous intraepithelial lesion and malignancy High risk HPV : Negative Results of Aptima Combo 2 Assay: Chlamydia: Negative N. Gonorrhoeae: Negative Francine Lambert PA-C LAB - PATHOLOGY AND CYTOLOGY AMBULATORY Final Result Performing Organization Address [facility]/ZIP Co de Phone Number [facility] [address] [place] [address], * PAP SMEAR W/HPV (09/04/2020) Provider Louise LAB - PATHOLOGY AND CYTOLOGY AMB ULATORY Final Result Performing Organization Address [facility] Co de Phone Number [facility] [address] [place] [address], * (ABNORMAL) HEPATITIS A,B,C PANEL (06/19/2014 12:50 PM EDT) HEPATITIS B SURFACE ANTIGEN NEGATIVE NEGATIVE [facility] HEPATITIS C VIRUS ANTIBODY NEGATIVE NEGATIVE [facility] HEPATITIS A ANTIBODY TOTAL NEGATIVE NEGATIVE [facility] HEPATITIS B CORE ANTIBODY NEGATIVE NEGATIVE [facility] HEPATITIS B SURFACE ANTIBODY POSITIVE(A) NEGATIVE [facility] Blood specimen (specimen) Blood / Unknown 06/19/2014 12:50 PM EDT 06/19/2014 1:07 PM EDT Narrative [facility] - 06/19/2014 4:51 PM EDT [employer] [address] [place] [address] PT ID [id number] ORD# [id number] Francine Lambert PA-C LAB - BLOOD DRAW Edited Resu lt - Final [facility] [address] [place] [address], [place] [phone] * HIV-1 & HIV-2 ANTIBODIES (06/19/2014 12:50 PM EDT) HIV 1 AND 2 ANTIBODY SCREEN NEGATIVE NEGATIVE [facility] Blood specimen (specimen) Blood / Unknown 06/19/2014 12:50 PM EDT 06/19/2014 1:07 PM EDT Narrative [facility] - 06/19/2014 4:50 PM EDT [facility] [employer] [address] [place] [address] [place] [id number] ORD# [id number] Francine Lambert PA-C LAB - BLOOD DRAW Final Resul t Performing Organization Address City/[facility]/ZIP Co de Phone Number [facility] [address] [place] [address], [place] [phone] from Last 3 Months or Most Recently Relevant to Health Maintenance Insurance [place] MED[place] DENTAL HEALTH SAFETY [employer] [address] [employer] Care Teams Sheet Writer Relationship Specialty Start Date End Date Francine Lambert PA-C [address] [place] [phone] PCP - General Internal Medicine 05/18/14
--- OUTSIDE RECORDS SUMMARY | 2025-07-12 06:14 | XMS_ITS | Clinical Summary ---
Author Organization [facility] ity Address [address] [place] [address] Care Team Providers Care Railroad Engineer Name Role Phone Eros Whitten MD Primary Care Provider [phone] Social History Tobacco Use Types Packs/Day Years [...] Cervical Cancer Screening: P ap Smear 2004 HIV Screening 10/20/2022 Hepatitis C Screening 10/20/2022 Social Influencers of Health Screening 10/20/2022 COVID-19 Vaccine ( - 2023-2 5 season) 2024 Depression Screening 11/22/2024 Influenza Vaccine (#1) 2025 HIB Vaccines Aged [...] age to complete this topic Care Teams Railroad Engineer Relationship Specialty Start Date End Date Eros Whitten MD [facility] [place] [phone] PCP - General Internal Medicine 08/15/20
== END 2025-07-12 06:13 | disposition home or self-care (01) ==
LOC: CF 06:12
PROVIDERS: Visit Provider Internal Medicine
DX: M25.571 Pain in right ankle and joints of right foot (principal)
CPT/HCPCS: 64555; C1778; J2003

== ENCOUNTER 2025-07-12 11:41 | Outpatient (AMB) | payer MEDICAID, SELFPAY ==
[2025-07-12 11:53] VITALS: BP 107/51; PULSE 57; RESP 16; O2SAT 100; BMI 33.4
--- NOTE | 2025-07-12 11:53 | MHC.OFFVIS ---
Vital Signs 07/12/25 11:53 07/12/25 13:02 Height 5 ft 6 in Weight 207 lb BMI 33.4 BP 107/51 L 110/54 L Blood Pressure Location Lt brachial Rt brachial Position Sitting Sitting Respiration 16 16 Pulse 57 62 Pulse Source Pulse Oximeter Pulse Oximeter Pulse Oximetry (%) 100 97 Oxygen Delivery Method Room Air Room Air Intake Visit Reasons: Right sciatic nerve Sprint/ ativan Allergies oxycodone (From Percocet) Allergy (Unknown, Verified 06/07/25 14:07) Hives HPI HPI Right sciatic nerve Sprint/ ativan: Details: Patient presents for scheduled procedure. Denies any recent cough, cold, infection, fever or other significant changes in medical history since last office visit. [facility] Medical History (Updated 06/10/25 @ 18:05 by BENITEZ Villalobos) Chronic low back pain Traumatic arthritis of right ankle Chronic pelvic pain in female Lumbar degenerative disc disease Social History Alcohol intake: current Alcohol intake frequency: holidays/special occasions only Patient Tobacco Use Status: Current everyday Tobacco user Tobacco use type: Cigarette Cigarette Packs Per Day: 4 Physical Exam Vital Signs: Last Vital Signs Pulse 57 07/12/25 11:53 Resp 16 07/12/25 11:53 BP 107/51 L 07/12/25 11:53 Pulse Ox 100 07/12/25 11:53 Oxygen Delivery Method Room Air 07/12/25 11:53 BMI result Body Mass Index 33.4 Office Procedures Details: Peripheral Nerve Stimulation Temporary Lead Placement, Ultrasound-Guided, Sciatic Nerve, Right ? After the risks, benefits and alternatives were discussed with the patient and informed consent was obtained, patient was placed in the lateral position and padded to foster comfort. Appropriate skin and bony landmarks were identified, and pertinent vascular structures were located. The skin overlying the needle entry site was prepped and draped in sterile fashion. Ultrasound was used to identify the popliteal artery, the peroneal nerve and the tibial nerve. After identifying and marking the intended target along the course of the sciatic nerve, the skin around the planned entry point and the subcutaneous tissues were injected with local anesthetic. An introducer needle and stimulating probe were assembled, inserted and advanced along the intended course of the sciatic nerve, taking care to maintain the proper depth of insertion as the introducer was advanced under ultrasound guidance. The introducer needle was delivered to a location in proximity to the nerve, roughly in between the tibial and peroneal branches, taking care not to puncture the popliteal artery. Multiple stimulation parameters were used to deliver stimulation to the tibial nerve in concert with stimulating at multiple positions around the nerve. Nerve target acquisition was confirmed noting generation of sensory and mild motor effects (paresthesia, muscle tension, etc) in the foot and ankle; corresponding to the distribution of the sciatic nerve. Various electrical parameter combinations were tested, and the lead location was adjusted (physically relocated under ultrasound guidance) until the patient indicated medial knee paresthesia and tension overlapping the distribution of the patient?s typical region of pain. The stimulating probe was removed from the introducer and a percutaneous lead was guided through the needle and delivered to a location in similar proximity to the nerve. Final location was verified with electrical stimulation and documented. The introducer needle was removed, and the exposed end of the percutaneous lead was attached to an external stimulator unit. Various electrical parameter combinations were again tested until the patient indicated paresthesia and muscle tension overlapping the distribution of the patient?s typical region of pain. After confirming that lead impedance was in the normal range, the external unit was detached, the needle was removed, and the lead was anchored at the skin. The lead was threaded into the connector block and electrical continuity and desired patient response was confirmed. The connector block was attached to the external stimulator unit. The site was covered with a sterile occlusive dressing. A final ultrasound image was taken to document final placement. The patient was observed for stability of vital signs and comfort. Sprint PNS Device: Sprint PNS Device [id number] Percutaneous Peripheral Neuroelectrode Procedure: 70915 - Percutaneous Peripheral Neuroelectrode Procedure code (CPT) selection complete Office Meds lidocaine HCl 10 mg/mL (1 %) injection solution Performing Provider: Tierra Moore APRN, HEALTH SCREENER Performing Location: [facility] Administered by: Tayler Bocanegra LPN on 07/12/25 12:02 Dose Route Admin Location Dispensed Lot Number Expiration Date [facility] Marketing Automation Analyst 5 mL subcut 5 mL Total Dispensed Waste 5 mL 0 % Assessment & Plan Assessment & Plan (1) Right ankle pain: Code(s): M25.571 - Pain in right ankle and joints of right foot Category: Medical Plan Patient is status post right sciatic nerve block. Patient tolerated procedure well and was discharged home in stable condition with discharge instructions. All questions were answered. We will follow-up via telephone or in clinic to assess response to therapy. A follow-up appointment was made during today's visit. Orders: Orders US guide needle placement Today M25.571 - Pain in right ankle and joints of right foot AMB Sprint PNS Today M25.571 - Pain in right ankle and joints of right foot Medications: New lorazepam (Ativan) Take 30 minutes prior to arrival to procedure 1 mg PO ONCE 1 tab 0RF anxiety Coding Level of Care Code Procedure Only Diagnoses Right ankle pain M25.571 CPT Codes Sprint PNS - Sprint PNS Device: Sprint PNS Device ([id number]) Sprint PNS - SPRINT: 07143 - Percutaneous Peripheral Neuroelectrode ([id number]) Implantable Device Implantable Device Implantable Devices [employer] Automation Analyst Implant Date Expiration Date Analgesic PENS system 1 [email or web address] 07/12/25 02/13/27
[2025-07-12 13:02] VITALS: BP 110/54; PULSE 62; RESP 16; O2SAT 97
== END 2025-07-12 13:03 | disposition home or self-care (01) ==
LOC: HO.PMCPRC 11:41
PROVIDERS: PCP Physician Assistant; Visit Provider Internal Medicine
DX: M25.571 Pain in right ankle and joints of right foot (principal)
CPT/HCPCS: 64555

== ENCOUNTER 2025-09-07 10:29 | Outpatient (AMB) | payer MEDICAID, SELFPAY ==
--- NOTE | 2025-09-07 10:32 | A.OFFVIS_ITS ---
Vital Signs 09/07/25 10:39 Height 5 ft 6 in Weight 207 lb BMI 33.4 BP 112/71 Blood Pressure Location Lt radial Pulse 71 Pulse Source Pulse Oximeter Pulse Oximetry (%) 95 Oxygen Delivery Method Room Air Intake Visit Reasons: Sprint removal Intake Note: Pain today 07/01 Wheel Tuner Required: No Accompanied by: Self / Same As Patient Allergies oxycodone (From Percocet) Allergy (Unknown, Verified 09/07/25 10:38) Hives HPI Comments Details: The patient is a 40-year-old female presenting with the removal of a right sciatic nerve Sprint peripheral nerve stimulator. The stimulator was initially placed on July 12, 2025, to manage chronic right ankle pain, which provided approximately 50% pain relief. The patient reports pain primarily in the lateral and anterior aspects of right ankle, with exacerbation upon movement and walking. The patient also reports experiencing a cough that began on Wednesday, accompanied by a sensation of something in her chest that does not expel upon coughing. Patient also reports body aches and feeling hot. She denies having seen her primary care provider or visiting an urgent care clinic for this issue. The patient has a history of a left disc protrusion with lateral foraminal stenosis at L5-S1, identified in an MRI conducted in January 2025. However, her current symptoms are on the right side, which is not consistent with the MRI findings. Past Procedures: 07/12/25: Right Sciatic Nerve Sprint PNS placement-50% ongoing pain relief PRIOR: The patient is a 40-year-old female presenting with postoperative pain management following right ankle surgery and management of chronic low back pain. The patient underwent right ankle surgery approximately one month ago and is experiencing postoperative pain. She is wearing immobilizing boot and no other assisting devices. Her next follow up with Orthopedic surgeon, Dr. Pearce at [facility] is scheduled for June. She has been taking oxycodone for ankle pain, which causes mild hives. She has been advised to take oxycodone with Benadryl to m itigate the allergic reaction and takes it only at night. Prior to the ankle surgery, an MRI revealed a left L5-S1 disc herniation. The patient reports that the lidocaine patches are helping manage her back pain, and she does not have significant back pain today. Denies any recent cough, cold, infection, fever or any other significant changes in medical history since last office visit. PRIOR 02/22/25: Patient presents today for follow up to discuss recent lumbar spine MRI results. Patient continues to endorse chronic back pain and right ankle pain. She reports a persistent back pain history lasting over two years, primarily affecting the right side and occasionally both legs, impacting her right hip and groin. Her symptoms are exacerbated by specific activities, notably contributing to her discomfort. Additionally, the patient is preparing for right ankle surgery this month. A recent MRI revealed a left L5-S1 disc herniation with moderate spinal stenosis, despite the patient experiencing negligible left leg symptoms. Furthermore, a cyst on her right kidney was detected, prompting recommendations for follow-up with a renal ultrasound. The patient reports partial back pain relief with lidocaine patches. - Onset: Chronic back pain over two years. - Quality: Radiating pain predominantly on the right side, sometimes affecting both legs. - Location: Right side, affecting right hip and groin; occasional bilateral leg pain. - Radiation: Pain radiates to the right leg, sometimes both but is described as minimal on the left. - Exacerbating Factors: Specific activities worsen the symptoms. - Relieving Factors: Partial relief with lidocaine patches, heat, Tylenol, NSAID. - Impact on Function: Slight interference with daily activities, specific impact not detailed. PRIOR: The patient is a 40-year-old female presenting with persistent back pain radiating into the right leg. Back pain has been progressively worsening for past 2 years. Reports stabbing pain is exacerbated by bending forward and backwards, significantly impacting her mobility and daily activities. There is associated tingling along the right leg down and below the knee with associated numbness and burning. The patient completed 6 sessions of physical therapy without relief of symptoms, and currently, she is in therapy for her ankle with potential discussion of right ankle surgery next month. Additionally, she exhibits limited mobility of the right ankle. Current pain management involves the use of lidocaine patches which provide mild symptom relief. She has ceased using meloxicam due to adverse effects, opting to use acetaminophen as needed. We will proceed with lumbar spine MRI as next steps. Patient denies pain on the left leg, abdominal or groin pain, weakness, bladder or bowel dysfunction or saddle anesthesia. - Onset: Chronic back pain for over 2 years. Right ankle pain. - Quality: Stabbing, aching, tingling, shooting, burning, throbbing, tiring, heavy - Location: Midline back with right leg radiation. Right ankle pain. - Radiation: From back to sides of the leg on the right - Exacerbating Factors: Flexion and extension of the back; standing and bending, walking - Relieving Factors: Lidocaine patches and heat therapy provide mild relief, Tylenol, tried NSAIDs -minimal relief - Impact: Limits range of motion; Tingling in the right leg; Limited right ankle mobility - Affect: Concerned about medication interactions; fear regarding medication usage - Analgesia: Current - Lidocaine patches used with mild relief, Acetaminophen as needed; Discontinued - Meloxicam - Adverse Effects: Not using meloxicam due to adverse effects - Activities of Daily Living: Limited by pain and restricted right ankle mobility - Aberrant Drug Related Behaviors: None reported; patient expresses cautious use of medications PRIOR: Patient is a 39 years old Maltese speaking female with recent traumatic arthritis of right ankle, chronic low back pain, lumbar DDD, obesity, chronic pelvic in female, presents today for initial evaluation of low back pain. Patient reports back pain has been chronic and recently exacerbated after she twisted her right ankle while wearing high heels at [employer] and subsequently injuring her right foot at work. She presents with RLE cast with exposed toes and is wearing Aircast boot. Patient reports she has Orthopedic follow up today with removal of cast and potential surgery discussion. Back pain is axial and discogenic without radiation into her lower extremities. She also has mild tenderness in the projection of bilateral sacroiliac joint areas, worse on the left. Denies previous spine surgery or injections. Pain affects her daily activities and functioning, mobility, sleep and social interactions. To this point she has not tried any dedicated conservative treatment in the forms of physical therapy, chiropractic, acupuncture or injections. She is interested to pursue PT and obtain initial lumbar spine imaging. Denies any fever or chills, abdominal or groin pain, weakness, bladder or bowel dysfunction or saddle anesthesia. Location: Lower back pain Duration: Chronic pain > 2 years Characteristics of symptom or complaint: Aching, stabbing, shooting, burning, throbbing Aggravating or associated factors: Prolonged sitting, bending, flexing forward, movements, ADLs Relieving factors: Tylenol, Ibuprofen, starting meloxicam, heat, rest Treatment: None PFSH Medical History Chronic low back pain Traumatic arthritis of right ankle Chronic pelvic pain in female Lumbar degenerative disc disease Social History Alcohol intake: current Alcohol intake frequency: holidays/special occasions only Patient Tobacco Use Status: Current everyday Tobacco user Tobacco use type: Cigarette Cigarette Packs Per Day: 4 Review of Systems Const All systems reviewed & are unremarkable except as noted in HPI and below Physical Exam Vital Signs: Last Vital Signs Pulse 71 09/07/25 10:39 BP 112/71 09/07/25 10:39 Pulse Ox 95 09/07/25 10:39 Oxygen Delivery Method Room Air 09/07/25 10:39 BMI result Body Mass Index 33.4 General: Appears afebrile. Alert and oriented. Mood and affect appropriate. Follows and participates in conversation appropriately. Respiratory effort is unlabored. No cough. No nasal discharge. Able to transition from sit to stand unassisted. Ambulates with bilaterally normal heel strike and toe off. Lead Insertion Site: Lead insertion site looks clean, dry, intact.? No pathological discharge, no swelling and no erythema. Lead pulled with tip intact, lead removed entirely, including tip. The area was cleansed again with ChloraPrep, dressed with Bacitracin, gauze and tegaderm. Const General: alert and tired appearing; No acute distress Nutritional Appearance: obese Orientation/consciousness: patient oriented x3 Resp Effort & Inspection: able to speak in complete sentences, Actively coughing, no respiratory distress, no stridor and no use of accessory muscles Neuro General: patient oriented x3 Results Reviewed Results Reviewed: XR LUMBOSACRAL SPINE 08/15/24 CLINICAL INFORMATION: Low back pain. FINDINGS: Submitted for interpretation on September 26, 2024. S-shaped curvature of the lower thoracic upper lumbar spine. No acute cortical disruption or gross malalignment. No lytic or blastic lesions. No gross malalignment during flexion and or extension. IMPRESSION: No acute fracture or listhesis. No instability. XR SACROILIAC JOINTS 08/15/24 CLINICAL INFORMATION: Pain. FINDINGS: No acute cortical disruption. No lytic or blastic lesions. No gross sclerosis. IMPRESSION: Normal sacroiliac joints. MR lumbar spine wo con 02/17/25 Lumbar MRI Without Contrast : Comparison: Plain films 08/15/2024 Findings: Alignment is good No Spondylolysis Bone marrow cellularity is normal. A 12 mm L1 vertebral body hemangioma is present. No fractures. Paravertebral soft tissues: Normal. A 10 mm right renal cortical cyst is present. The conus medullaris is located at T12-L1. Distal spinal cord morphology and signal is normal. T12-L1: No disc protrusion. No foraminal stenosis L1-L2: No disc protrusion. No foraminal stenosis L2-L3: No disc protrusion. No foraminal stenosis L3-L4: No disc protrusion. No foraminal stenosis L4-L5: No disc protrusion. No foraminal stenosis. L5-S1: There is focal left intraforaminal 5.2 mm disc protrusion with radial tear with moderate foraminal stenosis. Impression: Focal left intraforaminal disc protrusion with moderate foraminal stenosis at L5-S1. Assessment & Plan Assessment & Plan (1) Right ankle pain: Code(s): M25.571 - Pain in right ankle and joints of right foot Category: Medical (2) Traumatic arthritis of right ankle: Code(s): M12.571 - Traumatic arthropathy, right ankle and foot Category: Medical (3) History of ankle surgery: Code(s): Z98.890 - Other specified postprocedural states Category: Surgical Plan The plan includes monitoring the patient's pain relief following the removal of the right sciatic nerve Sprint peripheral nerve stimulator, which provided 50% relief. The patient is advised to continue physical therapy as recommended by her Orthpedic surgeon, with a follow-up in 4-6 months to assess progress. If the pain becomes intolerable, a consultation with an Orthopedist is suggested. For the cough and systemic symptoms, the patient is advised to visit her primary care provider or an urgent care clinic for further evaluation and possible testing. All questions and concerns have been answered and patient agreed with the treatment plan. Follow up as needed. Patient was informed and verbally consented to the use of an ambient scribe for clinic note documentation during this visit. Coding Level of Care Code Est Pt Level 3 (41950) Complex EM visit Add On G2211 Diagnoses Right ankle pain M25.571 Traumatic arthritis of right ankle M12.571 History of ankle surgery Z98.890
[2025-09-07 10:39] VITALS: BP 112/71; PULSE 71; O2SAT 95; BMI 33.4
--- OUTSIDE RECORDS SUMMARY | 2025-09-07 12:38 | XMS_ITS | Clinical Summary ---
Author Organization [facility] Address [address] [place] [address] Care Team Providers Care Human Capital Analyst Name Role Phone Unavailable Primary Care Provider Unavailabl e Encounters Date Type Department Care Team Description 06/12/2025 Population Health Risk Score [facility] ([facility] Department [address] [address] [place] [address] Provider, Population Health Generic from [...] COVID-19 Vaccine (1 - 2023-2 5 season) 2025 Influenza Vaccine (#1) 2025 12/07/2012 DTaP/Tdap/Td Vaccines [...]
--- OUTSIDE RECORDS SUMMARY | 2025-09-07 12:38 | XMS_ITS | Clinical Summary ---
Author Organization [facility] ity Address [id number] [place] [id number] Care Team Providers Care Water Use Inspector Name Role Phone Eros Whitten MD Primary Care Provider [phone] Social History Tobacco Use Types Packs/Day Years [...] Cervical Cancer Screening: P ap Smear 2004 HPV Vaccines (1 - 3-dose SCD M series) 2010 HIV Screening 10/20/2022 Hepatitis C Screening 10/20/2022 Social Influencers of Health Screening 10/20/2022 Depression Screening 11/22/2024 COVID-19 Vaccine ( - 2023-2 5 season) 2025 Influenza Vaccine (#1) 2025 RSV Immunization Adult Patie nts (1 - 1-dose 75+ series) 2058 HIB Vaccines Aged Out No longer eligi [...] age to complete this topic Care Teams Water Use Inspector Relationship Specialty Start Date End Date Eros Whitten MD [address] [place] [id number] PCP - General Internal Medicine 08/15/20
--- OUTSIDE RECORDS SUMMARY | 2025-09-07 12:38 | XMS_ITS | Clinical Summary ---
Author Organization [facility] Address [address] [place] [address] Care Team Providers Care Powerhouse Laborer Name Role Phone Francine Lambert PA-C Primary Care Provider [phone] Source Comments PLEASE NOTE, if this patient is a minor, it may be UNLAWFUL to discuss sensitive information that is contained in these records (such as FAMILY PLANNING, MENTAL HEALTH or SUBSTANCE ABUSE) with the minor patient's parent or other person without the patient's specific authorization.[facility] Allergies Active Allergy Reactions Criticality Noted Date Comments Oxycodone-Acetaminophen Itching 05/01/2016 Medications nystatin (MYCOSTATIN) 100,000 unit/gram powderIndication s:Intertrigo Apply [...] 24 hours). 28 Patch 1 5 Active celecoxib (CELEBREX) 200 mg capsuleIndicatio ns:Traumatic arthritis of right ankle Take 1 Capsule by mouth 2 (two) times daily. 180 Capsule 1 5 Active Hospital, Clinic, or Other [...] Encounters Date Type Department Care Team Description 08/06/2025 10:40 AM EDT Telemedicine Visit [address] [phone] Francine Lambert PA-C 06/26/2025 9:00 AM EDT Office Visit [address] [phone] Francine Lambert PA-C from Last 3 Months Immunizations Immunization Administration Dates Next Due INFLUENZA, SEASONAL, INJECTA BLE, PRESERVATIVE FREE 12/07/2012 MMR (MMR II/Priorix) 06/28/2019 PNEUMOCOCCAL CONJUGATE PCV 2 0 (Prevnar 20) 10/06/2022 PPD 05/03/2018, 7,04/29/2016,2014 TDAP 08/10/2017 Social History Tobacco Use Types Packs/Day Years Used Date Smoking Tobacco: Every Day Cigarettes 0.3 22.7 Started: 2003 Passive Smoke Exposure: Never Smokeless [...] Done Comments Anxiety Screening 1983 HPV Screening (self-collect) 1983 HPV Screening 1983 Pap Smear 09/04/2023 09/04/2020, 08/22, 09/04/2020, Additional history exists Annual Wellness (Adult): Indicated (All Coverage) 03/31/2025 03/31/2024, 10/06/2022, 09/04/2020, Additional history exists Cervical Cancer Screening 09/04/2025 Pap + HPV 09/04/2025 09/04/2020, 09/04/2020 [id number] ( season) 2025 01/06/2022 Postponed from 07/23/2025 (Patient postponement) Imm-HPV (1 - 3-dose SCDM series) 11/05/2025 Postponed from 2010 (Patient postponement) Imm-Influenza (#1) 2025 12/07/2012 Postponed from 07/23/2025 (Patient postponement) Hypertension Screening (#1) 06/26/2026 Relationship Safety Screening/Counseling 06/26/2026 06/26/2025, 03/31/2024, 01/07/2024, Additional history exists Tobacco Cessation Counseling (#1) 08/06/2026 11/14/2015, 10/03/2015 Diabetes Screening 01/28/2027 01/29/2024, 0 01/29/2024, 10/06/2022, Additional history exists Lipid Screening 01/28/2027 01/29/2024, 09/22, 08/29/2020, Additional history exists LARC-Liletta IUD 06/24/2027 06/24/2021 Imm-DTaP/Tdap/Td (2 - Td or Tdap) 08/10/2027 08/10/2017 Breast Cancer Screening (Mammogram) 09/01/2027 09/01/2025, 04/04/2024 HIV Screening Completed 06/19/2014 Hepatitis C Screening Completed 06/19/2014 Imm-Pneumococcal Completed 10/06/2022 Alcohol and Drug Screen Completed 02/01/20 25, 03/31/2024, 01/07/2024, Additional history exists Depression Annual Screen Completed 025, 06/14/2015, 08/06/2014 (Declined) Cervical Ablation/Cold-Knife Conization Discontinued Cervical Cryotherapy Discontinued Colposcopy Discontinued Excision/Leep Discontinued HPV Genotyping Discontinued Imm-Hepatitis B Discontinued Vaginal Pap Discontinued Vulvoscopy Discontinued Procedures Procedure Name Priority Date/Time Associated Diagnosis Comments HISTORIC MAMMOGRAM 09/01/2025 3: 00 AM EDT REFERRAL SCANNED DOCUMENT 07/12/2025 3:00 AM EDT US RENAL (KIDNEYS) BILAT Routine 07/03/2025 3:00 AM EDT Renal cyst, acquired, right 10 mm 05/2025 REFERRAL SCANNED DOCUMENT 06/27/2025 3:00 AM EDT REFERRAL SCANNED DOCUMENT 06/07/2025 3:00 AM EDT HEMOGLOBIN GLYCOSYLATED A1C Routine 01/29/2024 8:37 [...] Recently Relevant to Health Maintenance Results * HISTORIC MAMMOGRAM (09/01/2025 3:00 AM EDT) 09/01/2025 3:00 AM EDT us Francine Lambert PA-C IMG MAMMO Final Result * REFERRAL SCANNED DOCUMENT (07/12/2025 3:00 AM EDT) Only the most recent of3 resultswithin the time period is included. 07/12/2025 3:00 AM EDT Maninder Blaine SCAN REFERRAL Final Result * US RENAL (KIDNEYS) BILAT (07/03/2025 3:00 AM EDT) 07/03/2025 3:00 AM EDT Francine Lambert PA-C IMG ULTRASOUND Final Result [facility] Corporate Office [address], [address] [place] [address], * HEMOGLOBIN GLYCOSYLATED A1C (01/29/2024 8:37 AM EST) HEMOGLOBIN A1C 5.6 <5.7 % of total Hgb [employer] [facility] Comment: For the purpose of screening for the presence of diabetes: <5.7% Consistent with the absence of diabetes 5.7-6.4% Consistent with increased risk for diabetes (prediabetes) > or =6.5% Consistent with diabetes This assay result is consistent with a decreased risk of diabetes. Currently, no consensus exists regarding use of hemoglobin A1c for diagnosis of diabetes in children. According to [place] Diabetes Association (ADA) guidelines, hemoglobin A1c <7.0% represents optimal control in non- diabetic patients. Different metrics may apply to specific patient populations. Standards of Medical Care in Diabetes(ADA). Blood Blood / Unknown 01/29/2024 8 :37 AM EST 01/29/2024 8:40 AM EST Narrative [facility] - 01/31/2024 6:10 PM EDT FASTING:YES Francine Lambert PA-C LAB - BLOOD DRAW Edited Resu lt - Final Performing Organization Address City/[facility]/ZIP Co de Phone Number [employer] [address] [address], [employer] [address] [address] * (ABNORMAL) LIPID PANEL (01/29/2024 8:37 AM EST) CHOLESTEROL, TOTAL 187 <200 mg/dL [facility] HDL CHOLESTEROL 35(L) > OR = 50 mg/dL [facility] TRIGLYCERIDES 114 <150 mg/dL [facility] LDL-CHOLESTEROL 130(H) 99 mg/dL (calc) [facility] Comment: Reference range: <100 Desirable range <100 mg/dL for primary prevention; <70 mg/dL for patients with CHD or diabetic patients with > or = 2 CHD risk factors. LDL-C is now calculated using the Christiano calculation, which is a validated novel method providing better accuracy than the Friedewald equation in the estimation of LDL-C. Bassam SS et al. RADHA. 2013;310(19): 0147-1517 (http://education.tado/faq/ZCW409) CHOL/HDLC RATIO 5.3(H) <5.0 (calc) [facility] NON-HDL CHOLESTEROL 152(H) <130 mg/dL (calc) [facility] Comment: For patients with diabetes plus 1 major ASCVD risk factor, treating to a non-HDL-C goal of <100 mg/dL (LDL-C of <70 mg/dL) is considered a therapeutic option. Blood Blood / Unknown 01/29/2024 8 :37 AM EST 01/29/2024 8:40 AM EST Narrative [facility] - 01/31/2024 6:10 PM EDT FASTING:YES us Francine Lambert PA-C LAB - BLOOD DRAW Final Resul t [employer] [address] [address], [employer] [facility] [address] [place] [address] * PAP, LIQUID BASED (09/04/2020 10:30 AM EDT) PAP normal NORMAL - ABNORMAL [facility] Cervix Cervix uteri structure / Unknown 09/04/2020 10:30 AM EDT Impressions [facility] - 09/04/2020 10:30 AM EDT Negative for squamous intraepithelial lesion and malignancy High risk HPV : Negative Results of Aptima Combo 2 Assay: Chlamydia: Negative N. Gonorrhoeae: Negative Francine Lambert PA-C LAB - PATHOLOGY AND CYTOLOGY AMBULATORY Final Result Performing Organization Address [facility] Co de Phone Number [facility] [address] [place] [address], * PAP SMEAR W/HPV (09/04/2020) Provider [facility] - PATHOLOGY AND CYTOLOGY AMB ULATORY Final Result Performing Organization Address [facility] de Phone Number [facility] [address] [place] [address], * (ABNORMAL) HEPATITIS A,B,C PANEL (06/19/2014 12:50 PM EDT) HEPATITIS B SURFACE ANTIGEN NEGATIVE NEGATIVE [facility] HEPATITIS C VIRUS ANTIBODY NEGATIVE NEGATIVE [facility] HEPATITIS A ANTIBODY TOTAL NEGATIVE NEGATIVE [facility] HEPATITIS B CORE ANTIBODY NEGATIVE NEGATIVE [facility] HEPATITIS B SURFACE ANTIBODY POSITIVE(A) NEGATIVE [facility] Blood specimen (specimen) Blood / Unknown 06/19/2014 12:50 PM EDT 06/19/2014 1:07 PM EDT Narrative [facility] - 06/19/2014 4:51 PM EDT [facility] [employer] [address] [place] [address] [place] [id number] ORD# [id number] Francine Lambert PA-C LAB - BLOOD DRAW Edited Resu lt - Final Performing Organization Address [facility] Co de Phone Number [facility] [address] [place] [address], * HIV-1 & HIV-2 ANTIBODIES (06/19/2014 12:50 PM EDT) HIV 1 AND 2 ANTIBODY SCREEN NEGATIVE NEGATIVE [facility] Blood specimen (specimen) Blood / Unknown 06/19/2014 12:50 PM EDT 06/19/2014 1:07 PM EDT Narrative [facility] - 06/19/2014 4:50 PM EDT [facility] [employer] [address] [place] [address] PT ID [id number] ORD# [id number] us Francine Lambert PA-C LAB - BLOOD DRAW Final Resul t [facility] [address] [place] [address], [place] [phone] from Last 3 Months or Most Recently Relevant to Health Maintenance [place] [facility] SAFETY NET DENTAL [address] ACO [facility] Medicaid Address: [facility] [id number] [place] [address] Care Teams Powerhouse Laborer Relationship Specialty Start Date End Date Farncine Lambert PA-C [facility] [place] [phone] PCP - General Internal Medicine 05/18/14
== END 2025-09-07 10:49 | disposition home or self-care (01) ==
LOC: HO.PMC 10:30
PROVIDERS: PCP Physician Assistant; Visit Provider Nurse Practitioner Family
DX: M25.571 Pain in right ankle and joints of right foot (principal); M12.571 Traumatic arthropathy, right ankle and foot; Z98.890 Other specified postprocedural states
CPT/HCPCS: 99213

== ENCOUNTER → 2025-09-07 10:29 | Outpatient (BNVA) | payer MEDICAID, SELFPAY | PROVIDERS: PCP Physician Assistant; Visit Provider Nurse Practitioner Family | DX: M25.571 Pain in right ankle and joints of right foot (principal); M12.571 Traumatic arthropathy, right ankle and foot; Z98.890 Other specified postprocedural states | CPT/HCPCS: 99212 ==

== ENCOUNTER 2025-09-09 12:58 | Emergency (ER) | payer MEDICAID, SELFPAY ==
--- NOTE | ~2025-09-09 | XR_ITS ---
CLINICAL HISTORY: cough 1 week 2 view chest x-ray Comparison: None provided Findings: The lungs are clear. Normal size heart. No acute fracture. IMPRESSION: 1. No acute findings. This document has been electronically signed by: Patricia Haynes MD on 09/09/2025 15:30:23
[2025-09-09 13:12] VITALS: BP 122/78; PULSE 66; O2SAT 98
[2025-09-09 13:18] VITALS: BP 104/53; PULSE 57; RESP 18; TEMP 36.8; O2SAT 98; BMI 33.8
--- NOTE | 2025-09-09 13:23 | ED.GENADULT ---
HPI - General Adult General Chief complaint: Upper Respiratory Symptoms Stated complaint: GOODWIN,NAUSEA,COUGH FROM URGENT CARE PER EMS Time Seen by Provider: 09/09/25 16:29 Source: patient and family () Mode of arrival: ambulatory Limitations: no limitations History of Present Illness ED Provider: ONEYDA HAMILTON PA-C HPI narrative: 40 year old female presents to the ED today for evaluation of nasal congestion, cough, and shortness of breath x6 days. She was evaluated at urgent care 3 days ago for same, diagnosed with bronchitis and discharged home with Ventolin and 60 mg prednisone daily. She has been taking this as prescribed without much improvement in symptoms. She feels as though she can not expel the sputum. Reports chest congestion. She re-presented to urgent care today where she was advised to come to the emergency department for further evaluation. Patient admits to smoking cigarettes daily, >5 cigarettes per day x 25 years. Has continued to smoke over the last week. She denies any known history of asthma/COPD. Does not currently follow with a senior manufacturing test engineer. Denies recent travel or long car rides, hemoptysis, fever/chills. No known sick contacts. Related Data Home Medications ?Medication ?Instructions ?Recorded ?Confirmed omeprazole 20 mg capsule,delayed 20 mg PO BID 08/11/24 release methimazole 10 mg tablet 10 mg PO Q8H 02/06/25 nicotine 21 mg/24 hr daily 1 patch topical DAILY 02/06/25 transdermal patch propranolol 20 mg tablet 20 mg PO TID 02/06/25 zinc oxide 20 % topical ointment topical 02/06/25 loratadine 10 mg tablet 10 mg PO BEDTIME 06/07/25 Previous Rx's ?Medication ?Instructions ?Recorded lidocaine 5 % topical patch 1 patch topical DAILY pain 30 days 06/07/25 #30 ea lorazepam 1 mg tablet (Ativan) 1 mg PO ONCE anxiety #1 tab 07/09/25 azithromycin 250 mg tablet See Rx Instructions PO .COMPLEX #6 09/09/25 tabs guaifenesin 200 mg/5 mL oral liquid 200 mg (5 mL) PO Q4H PRN cough 09/09/25 #118 mL Allergies Allergy/AdvReac Type Severity Reaction Status Date / Time oxycodone (From Percocet) Allergy Unknown Hives Verified 09/09/25 13:24 Review of Systems Review of Systems: Yes all other systems are reviewed and are negative [facility] Past Medical History Attestation statement: The following information was validated with the patient. Source: old records reviewed and nursing notes reviewed Medical History Chronic low back pain Traumatic arthritis of right ankle Chronic pelvic pain in female Lumbar degenerative disc disease Social History Social History Alcohol intake: current Alcohol intake frequency: holidays/special occasions only Patient Tobacco Use Status: Current everyday Tobacco user Tobacco use type: Cigarette Cigarette Packs Per Day: 4 Advance Directives: No Advance Directives Information Provided: No Do you have a plan to hurt others: No Plan Physical Exam ED Vital Signs: Vital Signs - 24 hr 09/09/25 13:18 09/09/25 15:48 09/09/25 17:12 Temperature 98.2 F 97.5 F Pulse Rate 57 60 68 Respiratory Rate 18 20 18 Blood Pressure 104/53 L 116/42 L Pulse Oximetry 98 98 Oxygen Delivery Method Room Air Room Air 09/09/25 18:16 Temperature 98.2 F Pulse Rate 68 Respiratory Rate 18 Blood Pressure 120/84 Pulse Oximetry 97 Oxygen Delivery Method Room Air BMI result Body Mass Index 33.8 Vital signs stable, afebrile. Not hypoxic or tachycardic. General: Well appearing, in no acute distress. Skin: Warm, dry, intact. No rashes or lesions. Head: Normocephalic, atraumatic. EENT: Hearing is intact b/l. Conjunctiva clear. Sclera is anicteric. PERRLA. EOM intact. Moist mucous membranes.? Neck: Supple without LAD Cardiac: Chest wall symmetric. RRR Lungs: Normal respiratory effort. No tripoding. Congested cough noted. Inspiratory wheeze with diffuse expiratory rhonchi. Ext: Upper and lower extremities atraumatic, without tenderness, deformity, swelling or erythema Neuro: AOx3. Normal speech Ambulating with steady gait Course Course Course Narrative: This is a rapid medical exam performed by Sammie Salazar NP: Additional HPI, ROS, PE not included below will be deferred to primary provider. Patient is a 40y/o F presenting from urgent care with complaint of cough, headache, nausea since Wednesday. Went to urgent care on Fri, given prednisone. Not feeling better, went back today and was given a breathing treatment. Plan: strep and viral swabs, labs, cxr Reevaluation(s) Reevaluation #1: CBC without leukocytosis or left shift. No anemia. H&H stable. Chemistry without acute electrolyte abnormality requiring intervention. No ROB. Liver function WNL. Negative COVID, flu. Chest x-ray without infiltrate or consolidation to suggest pneumonia. > patient with diffuse inspiratory and expiratory wheezes/rhonchi. Medicated with albuterol, Solu-Medrol with improvement. No longer feels short of breath. > suspicion for bronchitis. She is currently on a course of prednisone. Has 2 days left. Will add on a 5 day course of azithromycin along with guaifenesin to help expel her sputum. I suspect her tobacco use is exacerbating her symptoms, discussed sensation of tobacco products. she verbalizes understanding. Patient has remained stable throughout ED visit today. Discussed worrisome signs and symptoms and when to return to the ED. All questions answered at this time. Patient is agreeable with disposition and stable for discharge. Medications Administered Discontinued Medications Generic Name Dose Route Start Last Admin Trade Name Freq PRN Reason Stop Dose Admin Albuterol Sulfate 2.5 mg/ 0 mg 09/09/25 17:04 09/09/25 17:09 Albuterol/Ipratropium 3 ml INHALE 09/09/25 17:05 1 dose ONCE ONE Administration Guaifenesin 10 ml 09/09/25 16:45 09/09/25 17:08 Guaifenesin 200 Mg/10 Ml 10 Ml Liquid PO 09/09/25 16:46 10 ml ONCE ONE Administration Methylprednisolone Sodium Succinate 60 mg 09/09/25 17:01 09/09/25 17:08 Methylprednisolone Sod Succ 125 Mg/2 Ml Vial IM 09/09/25 17:02 60 mg ONCE ONE Administration Procedures Smoking Cessation Time Spent Discussing Smoking Cessation w/Patient (min): 5 Patient Acknowledges Need for Cessation: Yes Medical Decision Making Medical Decision Making MDM Narrative: 40 year old female presents to the ED today for evaluation of nasal congestion, cough, and shortness of breath x6 days. Vital signs stable, afebrile. Not hypoxic or tachycardic. She is well-appearing and in no acute distress. on exam, Normal respiratory effort. No tripoding. Congested cough noted. Inspiratory wheeze with diffuse expiratory rhonchi. Differential diagnosis includes viral syndrome, bronchitis, pneumonia, smoker's cough, URI. PERC 0 - PE unlikely. Plan for labs, viral swabs, cxr, bronch treatment, steroids, re-evaluation. Differential Diagnosis Differential Diagnoses: The differential diagnosis associated with the presentation includes as above. Admission/Observation not indicated. Lab Data MDM Lab Attestation statement: I reviewed the patient's lab results. as above. 09/09/25 13:45 09/09/25 13:45 Labs: Lab Results 09/09/25 09/09/25 Range/Units 13:42 13:45 WBC 10.7 (4.8-10.8) X10*3/uL RBC 4.66 (4.20-5.50) X10*6/uL Hgb 12.7 (12.0-16.0) g/dl Hct 38.8 (37.0-47.0) % MCV 83.3 (80.0-98.0) fL MCH 27.3 (27.0-33.0) pg MCHC 32.7 (31.0-35.0) g/dl RDW 13.6 (11.0-16.0) % Plt Count 241 (160-400) X10*3/uL MPV 10.1 (9.4-12.3) fL Immature Gran % (Auto) 0.2 (0.0-0.4) % Neut % (Auto) 59.1 (45-73) % Lymph % (Auto) 34.7 (20-40) % Mccracken % (Auto) 5.4 (2-11) % Eos % (Auto) 0.2 (0-4) % Baso % (Auto) 0.4 (0-2) % Lymph # (Auto) 3.7 (1.2-4.9) X10*3/uL Mccracken # (Auto) 0.6 (0.1-1.2) X10*3/uL Eos # (Auto) 0.0 (0.0-0.4) X10*3/uL Baso # (Auto) 0.0 (0.0-0.2) X10*3/uL Abs Immat Gran (auto) 0.02 (0.00-0.03) X10*3/uL Absolute Neuts (auto) 6.3 (2.0-8.3) x10*3/uL Absolute Nucleated RBC 0.000 (0.0-0.012) X10*3/uL Nucleated RBC % (auto) 0.0 (0.0-0.2) /100WBC Sodium 140 (135-145) mmol/L Potassium 4.1 (3.3-5.1) mmol/L Chloride 106 (96-108) mmol/L Carbon Dioxide 27 (22-29) mmol/L Anion Gap 11 L (12-20) BUN 11 (9-16) mg/dL Creatinine 0.95 (0.5-1.4) mg/dL Estim Creat Clear Calc 83.5 Estimated GFR > 60 Random Glucose 78 (60-115) mg/dL Calcium 9.1 (8.4-10.2) mg/dL Total Bilirubin 0.3 (0.0-1.0) mg/dL AST 29 (5-31) U/L ALT 33 H (0-31) U/L Alkaline Phosphatase 113 (39-117) U/L Total Protein 7.6 (6.5-8.0) g/dL Albumin 4.6 (3.5-5.0) g/dL COVID-19 (MOISE) Negative (Negative) COVID-19 Clin Com See Note Influenza Type A (WADE) Negative (Negative) Influenza Type B (WADE) Negative (Negative) Influenza A & B Note See Note Independent Interpretation I performed an independent interpretation of an: Plain X-Ray Interpretation: chest xray without infiltrate or consolidation Radiology Impression Discussion of test interpretation with radiology: I have reviewed the radiologist's reading. Radiologist Impression: Date of Service: 09/09/25 Procedure(s): XR chest 2V Accession Number(s): [id number] cc: Fela Salazar CRIMINAL JUSTICE DEPARTMENT CHAIR~ Reason for Exam: cough 1 week CLINICAL HISTORY: cough 1 week 2 view chest x-ray Comparison: None provided Findings: The lungs are clear. Normal size heart. No acute fracture. IMPRESSION: 1. No acute findings. This document has been electronically signed by: Patricia Haynes MD on 09/09/2025 15:30:23 Independent Historian Clinical information obtained from an independent historian. History obtained from or confirmed by: Spouse External Record Review External record reviewed: Inpatient record Prescription Management I considered prescription management with: Antibiotic (Azithromycin) and Other (Guaifenesin) Chronic Conditions Patient?s care impacted by: Other (tobacco use) Social Determinants Patient?s care significantly limited by Social Determinants of Health including: Other Social Determinant of Health Critical Care Time Critical Care Time Critical Care Time: No Discharge Plan Discharge Clinical Impression: Bronchitis Patient Disposition: Home, Self-Care Instructions: Chronic Bronchitis (ED) Additional Instructions: You were evaluated in the ED today for cough and shortness of breath. Your blood work is reassuring. Your chest x-ray does not demonstrate pneumonia. You tested negative for COVID, flu, strep throat. I am treating you for bronchitis. Azithromycin as an antibiotic that has been sent to your pharmacy. Take this as prescribed over the next 5 days. Continue your prednisone prescribed by urgent care. Take your next dose tomorrow as you received a dose in ED today. Continue to use the ventolin inhaler as needed for wheezing/ shortness of breath. I do find that you are using this more often without any improvement, please return to the ED. Guaifenesin has been sent to your pharmacy for you to take as needed for cough. Please stop smoking cigarettes. This is making your symptoms worse. Follow up with your primary care provider. I have also provided you with a referral to a senior manufacturing test engineer. Contact them to establish care. They will not call you. Return with any new or worsening symptoms In the case of an emergency call 911. Prescriptions: New azithromycin 250 mg tablet See Rx Instructions .ROUTE .COMPLEX Qty: 6 0RF Rx Instructions: For 250 mg dose pack: take 500 mg today (day 1), then 250 mg for 4 days (days 2-5) guaifenesin 200 mg/5 mL liquid 200 mg PO Q4H PRN (Reason: cough) Qty: 118 0RF No Action omeprazole 20 mg capsule,delayed release(DR/EC) 20 mg PO BID methimazole 10 mg tablet 10 mg PO Q8H propranolol 20 mg tablet 20 mg PO TID nicotine 21 mg/24 hr patch 24 hour 1 patch topical DAILY zinc oxide 20 % ointment topical lorazepam [Ativan] 1 mg tablet 1 mg PO ONCE Qty: 1 0RF Rx Instructions: Take 30 minutes prior to arrival to procedure loratadine 10 mg tablet 10 mg PO BEDTIME lidocaine 5 % adhesive patch,medicated 1 patch topical DAILY 30 Days Qty: 30 6RF Referrals: [facility] [Provider Group, Pulmonology] Francine Lambert PA [Primary Care Provider, Internal Medicine] Interventions: ED Discharge Assessment Last Done: 09/09/25 18:16 Discharge Date/Time: 09/09/25 18:16 Print Language: Estonian
--- NOTE | 2025-09-09 13:34 | PC.NURSE ---
coal sample tester #[id number]
[2025-09-09 14:02] LABS: MANUAL DIFF FLAG NO
[2025-09-09 14:03] LABS: Hematocrit 38.8 % (37.0-47.0); Hemoglobin 12.7 g/dl (12.0-16.0); Imm Gran Abs Auto 0.02 X10*3/uL (0.00-0.03); Imm Gran Pct Auto 0.2 % (0.0-0.4); Lymphocytes Absolute Auto 3.7 X10*3/uL (1.2-4.9); Mean Corpuscular HGB Conc 32.7 g/dl (31.0-35.0); Mean Corpuscular Hemoglobin 27.3 pg (27.0-33.0); Mean Corpuscular Volume 83.3 fL (80.0-98.0); NRBC Abs Auto 0.000 X10*3/uL (0.0-0.012); NRBC Pct Auto 0.0 /100WBC (0.0-0.2); Platelet Count 241 X10*3/uL (160-400); Red Blood Count 4.66 X10*6/uL (4.20-5.50); White Blood Count 10.7 X10*3/uL (4.8-10.8)
[2025-09-09 14:35] LABS: Alanine Aminotransferase 33 U/L (0-31); Albumin Level 4.6 g/dL (3.5-5.0); Alkaline Phosphatase 113 U/L (39-117); Anion Gap 11 (12-20); Aspartate Amino Transferase 29 U/L (5-31); Blood Urea Nitrogen 11 mg/dL (9-16); Calcium 9.1 mg/dL (8.4-10.2); Carbon Dioxide 27 mmol/L (22-29); Chloride 106 mmol/L (96-108); Creatinine Clr Calc Pharmacy 83.5; Estimated Glomerular Filt Rate > 60; Potassium 4.1 mmol/L (3.3-5.1); Sodium 140 mmol/L (135-145); Total Protein 7.6 g/dL (6.5-8.0)
[2025-09-09 14:41] LABS: IDNOW Serial# 58CA691E; Influenza B2 Negative (Negative)
[2025-09-09 14:42] LABS: COVID-19 Test Negative (Negative); IDNOW Serial# 55D5AD1C
[2025-09-09 15:48] VITALS: BP 116/42; PULSE 60; RESP 20; TEMP 36.4; O2SAT 98
--- OUTSIDE RECORDS SUMMARY | 2025-09-09 16:32 | XMS_ITS | Clinical Summary ---
Author Organization [facility] Address [address] [place] [address] Care Team Providers Care Water Valve Repairer Name Role Phone Francine Lambert PA-C Primary Care Provider [phone] Source Comments PLEASE NOTE, if this patient [...] Description 08/06/2025 10:40 AM EDT Telemedicine Visit [address] [phone] Francine Lambert PA-C 06/26/2025 9:00 AM EDT Office Visit [address] [phone] Francine Lambert PA-C from Last 3 Months [...] 09/04/2025 Pap + HPV 09/04/2025 09/04/2020, 09/04/2020 [id number] ( season) 2025 01/06/2022 Postponed from 07/23/2025 [...] REFERRAL SCANNED DOCUMENT 06/27/2025 3:00 AM EDT HEMOGLOBIN GLYCOSYLATED A1C Routine [...] 3:00 AM EDT) 09/01/2025 3:00 AM EDT Francine Lambert PA-C IMG MAMMO Final Result * REFERRAL SCANNED DOCUMENT (07/12/2025 3:00 AM EDT) Only the most recent of2 resultswithin the time period is included. 07/12/2025 3:00 AM EDT Maninder Blaine SCAN REFERRAL Final Result * US RENAL (KIDNEYS) BILAT (07/03/2025 3:00 AM EDT) 07/03/2025 3:00 AM EDT Francine Lambert PA-C IMG ULTRASOUND Final Result [facility] DI[facility]NOSTIC IMAGING Corporate Office [address], [address] [place] [address], * HEMOGLOBIN GLYCOSYLATED A1C (01/29/2024 8:37 AM EST) HEMOGLOBIN A1C 5.6 <5.7 % of total Hgb [facility] Comment: For the purpose of screening for the presence of diabetes: <5.7% Consistent with the absence of diabetes 5.7-6.4% Consistent with increased risk for diabetes (prediabetes) > or =6.5% Consistent with diabetes This assay result is consistent with a decreased risk of diabetes. Currently, no consensus exists regarding use of hemoglobin A1c for diagnosis of diabetes in children. According to [place] Diabetes Association (ADA) guidelines, hemoglobin A1c <7.0% represents optimal control in non- diabetic patients. Different metrics may apply to specific patient populations. Standards of Medical Care in Diabetes(ADA). Blood Blood / Unknown 01/29/2024 8 :37 AM EST 01/29/2024 8:40 AM EST Narrative Footnote - 01/31/2024 6:10 PM EDT FASTING:YES Francine Lambert PA-C LAB - BLOOD DRAW Edited Resu lt - Final Footnote [address] [place] [id number], [facility] [address] [place] [phone] * (ABNORMAL) LIPID PANEL (01/29/2024 8:37 AM EST) CHOLESTEROL, TOTAL 187 <200 mg/dL [facility] HDL CHOLESTEROL 35(L) > OR = 50 mg/dL [facility] TRIGLYCERIDES 114 <150 mg/dL [facility] LDL-CHOLESTEROL 130(H) 99 mg/dL (calc) [facility] Comment: Reference range: <100 Desirable range <100 mg/dL for primary prevention; <70 mg/dL for patients with CHD or diabetic patients with > or = 2 CHD risk factors. LDL-C is now calculated using the Christiano calculation, which is a validated novel method providing better accuracy than the Friedewald equation in the estimation of LDL-C. Bassam SS et al. RADHA. 2013;310(54): 5862-0767 (http://education.Embly/faq/ZAN037) CHOL/HDLC RATIO 5.3(H) <5.0 (calc) [facility] NON-HDL CHOLESTEROL 152(H) <130 mg/dL (calc) [facility] Comment: For patients with diabetes plus 1 major ASCVD risk factor, treating to a non-HDL-C goal of <100 mg/dL (LDL-C of <70 mg/dL) is considered a therapeutic option. Blood Blood / Unknown 01/29/2024 8 :37 AM EST 01/29/2024 8:40 AM EST Narrative Footnote - 01/31/2024 6:10 PM EDT FASTING:YES us Francine Lambert PA-C LAB - BLOOD DRAW Final Resul t Footnote [address] [place] [id number], [facility] [address] [phone] * PAP, LIQUID BASED (09/04/2020 10:30 AM EDT) PAP normal NORMAL - ABNORMAL [facility] Cervix Cervix uteri structure / Unknown 09/04/2020 10:30 AM EDT Impressions [facility] - 09/04/2020 10:30 AM EDT Negative for squamous intraepithelial lesion and malignancy High risk HPV : Negative Results of Aptima Combo 2 Assay: Chlamydia: Negative N. Gonorrhoeae: Negative Francine Lambert PA-C LAB - PATHOLOGY AND CYTOLOGY AMBULATORY Final Result Performing Organization Address [facility]/ZIP Co de Phone Number [facility] [address] [place] [address], * PAP SMEAR W/HPV (09/04/2020) Provider [facility] - PATHOLOGY AND CYTOLOGY AMB ULATORY Final Result Performing Organization Address [facility] Co de Phone Number [facility] [address] [place] [address], * (ABNORMAL) HEPATITIS A,B,C PANEL (06/19/2014 12:50 PM EDT) HEPATITIS B SURFACE ANTIGEN NEGATIVE NEGATIVE [facility] HEPATITIS C VIRUS ANTIBODY NEGATIVE NEGATIVE [facility] HEPATITIS A ANTIBODY TOTAL NEGATIVE NEGATIVE [facility] HEPATITIS B CORE ANTIBODY NEGATIVE NEGATIVE [facility] HEPATITIS B SURFACE ANTIBODY POSITIVE(A) NEGATIVE [facility] Blood specimen (specimen) Blood / Unknown 06/19/2014 12:50 PM EDT 06/19/2014 1:07 PM EDT Narrative [facility] - 06/19/2014 4:51 PM EDT [facility] [address] [place] [address] PT ID [id number] ORD# [id number] Francine Lambert PA-C LAB - BLOOD DRAW Edited Resu lt - Final Performing Organization Address [facility] Co de Phone Number [facility] [address] [place] [address], * HIV-1 & HIV-2 ANTIBODIES (06/19/2014 12:50 PM EDT) HIV 1 AND 2 ANTIBODY SCREEN NEGATIVE NEGATIVE [facility] Blood specimen (specimen) Blood / Unknown 06/19/2014 12:50 PM EDT 06/19/2014 1:07 PM EDT Narrative [facility] 06/19/2014 4:50 PM EDT [employer] [facility] [address] [place] [address] PT [place] [id number] ORD# [id number] us Francine Lambert PA-C LAB - BLOOD DRAW Final Resul t [facility] [address] [place] [address], [place] [phone] from Last 3 Months or Most Recently Relevant to Health Maintenance [place] [facility] SAFETY NET [facility] [employer] Care Teams Water Valve Repairer Relationship Specialty Start Date End Date Francine Lambert PA-C [address] [place] [phone] PCP - General Internal Medicine 05/18/14
--- OUTSIDE RECORDS SUMMARY | 2025-09-09 16:32 | XMS_ITS | Clinical Summary ---
Author Organization [employer] [facility] Address [address] [place] [address] Care Team Providers Care Voip Technician Name Role Phone Unavailable Primary Care Provider Unavailabl e Encounters Date Type Department Care Team Description 06/12/2025 Population Health Risk Score [facility] Care [facility] (C3) Department [address] [facility] [address] [place] [address] Provider, Population Health Generic from [...]
--- OUTSIDE RECORDS SUMMARY | 2025-09-09 16:32 | XMS_ITS | Clinical Summary ---
Author Organization [facility] ity Address [id number] [place] [phone] Care Team Providers Care Operations Support Specialist Name Role Phone Eros Whitten MD Primary Care Provider [phone] Social History Tobacco Use Types Packs/Day Years [...] age to complete this topic Care Teams Operations Support Specialist Relationship Specialty Start Date End Date Eros Whitten MD [address] [place] [phone] PCP - General Internal Medicine 08/15/20
[2025-09-09] MEDS: guaiFENesin 200 MG/10 ML 10 ML LIQUID PO (17:08)
[2025-09-09] MEDS: Albuterol Sulfate 2.5 MG, Albuterol/Iprat 2.5/0.5MG 3 ML 3 ML INHALE (17:09)
[2025-09-09 17:12] VITALS: PULSE 68; RESP 18; O2SAT 98
--- NOTE | 2025-09-09 17:33 | PC.NURSE ---
pt is A+OX4, calm, cooperative. RR even and unlabored, speaking in complete sentences. No visible s/s of distress.
--- NOTE | 2025-09-09 17:42 | PC.NURSE ---
Pt completed breathing treatment, sts feeling a bit better after her medications and treatment.
[2025-09-09 18:16] VITALS: BP 120/84; PULSE 68; RESP 18; TEMP 36.8; O2SAT 97
== END 2025-09-09 18:16 | disposition home or self-care (01) ==
PROVIDERS: Registered Nurse Emergency; Emergency Provider Student in an Organized Health Care Education/Training Program; PCP Physician Assistant
DX: J40 Bronchitis, not specified as acute or chronic (principal); R05.9 Cough, unspecified; R06.02 Shortness of breath; F17.210 Nicotine dependence, cigarettes, uncomplicated
CPT/HCPCS: 36415; 71046; 80053; 85025; 87502; 87635; 94640; 96372; 99283; 99284; J2919

== ENCOUNTER → 2025-09-09 13:25 | Outpatient (BNV) | payer MEDICAID, SELFPAY | PROVIDERS: Visit Provider Radiology Diagnostic Radiology | DX: R05.9 Cough, unspecified (principal) | CPT/HCPCS: 71046 ==